=== PATIENT | female | born 1940 | race Caucasian/White ===

== ENCOUNTER 2023-03-21 11:21 | Outpatient (OUT) | payer MEDICARE, SELFPAY ==
--- NOTE | 2023-03-21 11:25 | MM_ITS ---
Patient: BRIDGER PRICE Exam Date: 03/21/2023 : 1940 Gender:F Ordering : DR Samantha Patel M.D. Admission #: [id number] Family : Order #: [id number] CLICK HERE TO VIEW EXAM RADIOLOGY REPORT PROCEDURE: MM TOMOSYNTHESIS SCREENING BI COMPARISON: MG MAMM SCREEN 3D DANIEL CAD, 01/26/2022. MG MAMM SCREEN DANIEL W CAD, 12/31/2019. MG MAMM SCREEN DANIEL W CAD, 12/16/2018. MG MAMM DANIEL SCRN W CAD DIG, 07/02/2013. INDICATIONS: Screening mammogram Z12.31 Calculator Name NCI Breast Cancer Risk Assessment Tool 5 Year Breast Cancer Risk 1.90% Lifetime Breast Cancer Risk 2.60% Personal Breast Cancer No Personal Ovarian Cancer No Treatments Hysterectomy, bilateral oophrectomy Family Cancers Brother with prostate cancer at age 62. LOCATION: [facility] BREAST COMPOSITION: Scattered areas fibroglandular density. FINDINGS: DIAGNOSTIC CATEGORY 2--BENIGN FINDING: RIGHT BREAST: No significant suspicious finding. Scattered benign-appearing calcifications are present. Stable biopsy marker clip and adjacent asymmetry within the upper-outer quadrant. No significant change has occurred. LEFT BREAST: No significant suspicious finding. Scattered benign-appearing calcifications are present. No significant change has occurred. RECOMMENDATIONS: ROUTINE MAMMOGRAM AND CLINICAL EVALUATION IN 12 MONTHS. PLEASE NOTE: A NORMAL MAMMOGRAM DOES NOT EXCLUDE THE POSSIBILITY OF BREAST CANCER. A CLINICALLY SUSPICIOUS PALPABLE LUMP SHOULD BE BIOPSIED. Dictated by: Igor Giles M.D. on 03/21/2023 at 14:39 Approved by: Igor Giles M.D. on 03/21/2023 at 14:53
== END 2023-03-21 11:22 | disposition home or self-care (01) ==
LOC: MAMMO 11:22
PROVIDERS: PCP Family Medicine; Visit Provider Family Medicine
DX: Z12.31 Encounter for screening mammogram for malignant neoplasm of breast (principal); Z80.42 Family history of malignant neoplasm of prostate
CPT/HCPCS: 77063; 77067

== ENCOUNTER 2024-02-03 10:33 | Outpatient (OUT) | payer MEDICARE, SELFPAY ==
[2024-02-03 11:18] LABS: Bilirubin Urine NEGATIVE (NEGATIVE); Blood Urine NEGATIVE (NEGATIVE); Clarity Urine CLEAR (CLEAR); Color Urine LT. YELLOW (YELLOW); Glucose Urine UA NEGATIVE (NEGATIVE); Ketones Urine NEGATIVE (NEGATIVE); Leukocyte Esterase Urine SMALL (NEGATIVE); Nitrite Urine NEGATIVE (NEGATIVE); Protein Urine NEGATIVE (NEG/TRACE); Urobilinogen Urine 0.2 EU/dL (0.2-1.0); pH Urine 6.5 (5.0-9.0)
== END 2024-02-03 10:34 | disposition home or self-care (01) ==
PROVIDERS: PCP Family Medicine; Visit Provider Family Medicine
DX: R30.0 Dysuria (principal)
CPT/HCPCS: 81003; 87086

== ENCOUNTER 2024-04-21 09:22 | Outpatient (OUT) | payer MEDICARE, SELFPAY ==
--- NOTE | 2024-04-21 09:26 | XR_ITS ---
[address] [address] Patient Name: BRIDGER PRICE MRN: [id number] date: 1940 Sex: F Assigned Patient Location: [facility] Current Patient Location: [facility] Accession/Order Number: [id number] Exam Date: 04/21/2024 09:50 Report Date: 04/21/2024 11:44 At the request of: AGUSTÍN VALDEZ Procedure: XR DEXA axial skeleton EXAMINATION: XR DEXA axial skeleton HISTORY: Menopause Present COMPARISON: DEXA bone densitometry 01/26/2022 TECHNIQUE: Dual-energy X-ray absorptiometry (DXA) was performed. FINDINGS: SPINE ANALYSIS: Average bone mineral density is 0.884 g/cm2. T-score (standard deviation relative to young adult mean): -2.6 . +2.3% change since prior study. HIP ANALYSIS: Lowest bone mineral density is within the right femoral neck, 0.660 g/cm2. T-score (standard deviation relative to young adult mean): -2.7 . -2.3% change since prior study. XR/XR DEXA axial skeleton IMPRESSION: World Health Organization Classification: Osteoporosis - High Fracture Risk FRAX: Cannot be calculated Pharmacologic treatment recommendations * No uniform recommendation applies to all patients. Management plans must be individualized. * Consider initiating pharmacologic treatment in postmenopausal women and men >= 50 years of age who have the following: Primary fracture prevention: * T-score <= - 2.5 at the femoral neck, total hip, lumbar spine, 33% radius (some uncertainty with existing data) by DXA. * Low bone mass (osteopenia: T-score between - 1.0 and - 2.5) at the femoral neck or total hip by DXA with a 10-year hip fracture risk >= 3% or a 10-year major osteoporosis-related fracture risk >= 20% (i.e., clinical vertebral, hip, forearm, or proximal humerus) based on the [place]-adapted FRAXregistered model. Secondary fracture prevention: * Fracture of the hip or vertebra regardless of BMD [4, 5]. * Fracture of proximal humerus, pelvis, or distal forearm in persons with low bone mass (osteopenia: T-score between - 1.0 and - 2.5). The decision to treat should be individualized in persons with a fracture of the proximal humerus, pelvis, or distal forearm who do not have osteopenia or low BMD [12, 13]. Dante MS, Olya SL, Vishal KL, Earnest EM, Aldair KG, AJ, Stan ES. The clinician's guide to prevention and treatment of osteoporosis. Osteoporos Int. 2021;33(10):1002-1775. doi: 10.1007/p13810-020-21027-p. Epub 2021Dec 07. Erratum in: Osteoporos Int. 2021Mar 08;: PMID: [id number]; PMCID: [id number]. Electronically authenticated by: SALVADOR MERINO Date: 04/21/2024 11:44
--- OUTSIDE RECORDS SUMMARY | 2024-04-21 09:28 | XMS_ITS | CCD ---
Author Organization [facility] Care Team Providers Care Training Executive Name Role Phone RALF ZARAGOZA Primary Care Physician REQUEST, NONE LISTED Consulting Unavaila ble BALL, DR ARAMBULA Primary Care Unavailable REQUEST, NONE LISTED Admitting Unavaila ble REQUEST, NONE LISTED Attending Unavaila ble REQUEST, NONE LISTED Consulting Unavaila ble BALL, DR ARAMBULA Primary Care Unavailable REQUEST, NONE LISTED Admitting Unavaila ble REQUEST, NONE LISTED Attending Unavaila ble BALL, DR ARAMBULA Admitting Unavailable BALL, DR ARAMBULA Attending Unavailable BALL, DR ARAMBULA Consulting Unavailable BALL, DR ARAMBULA Primary Care Unavailable ZIEBER, DR SALVADOR Zimmerman Consulting Unavailable AGUSTÍN VALDEZ Primary Care Physician Agustín Valdez Unavailable Ralf Zaragoza Unavailable Ralf Zaragoza MD Primary Care Provider Mahin Wise Attending Unavailable Mahin Wise Admitting Unavailable Dedrick Mcgrath Attending Unavailable Dedrick Mcgrath Attending Unavailable Lulu Mcgrathamad AJamie Admitting Unavailable Lulu Mcgrathamacliff AJamie Attending Unavailable Dedrick Mcgrath AJamie Referring Unavailable Mahin Wise Attending Unavailable Mahin Wise Admitting Unavailable YAS LAKE Attending Unavailable YAS LAKE Attending Unavailable YAS LAKE Attending Unavailable YAS LAKE Attending Unavailable YAS LAKE Attending Unavailable EVANS COHEN Attending Unavailable MAHIN WISE Attending Unavailable YAS LAKE Attending Unavailable Allergies Allergy Classification Reported Allergen(s) Allergy Type Date of Onset Reaction(s) Facility Cephalosporins (antibiotic) (2 sources) Cefadroxil; Translations: [cefadroxil] Drug Allergy Unknown [facility] Latex (1 source) Latex Substance Allergy Unknown [facility] Macrolides (antibiotic) (3 sources) Erythromycin; Translations: [erythromycin] Drug Allergy Unknown [facility] Penicillins (antibiotic) (1 source) Penicillins; Translations: [penicillins] Drug Allergy Unknown [facility] Prochlorperazine (1 source) Prochlorperazine; Translations: [prochlorperazine] Drug Allergy 021 Unknown [facility] Propranolol (1 source) Propranolol; Translations: [propranolol] Drug Allergy [facility] Quinolones (antibiotic) (1 source) moxifloxacin; Translations: [moxifloxacin] Drug Allergy [facility] Sulfamethoxazole / Trimethoprim (1 source) Sulfamethoxazole / Trimethoprim; Translations: [sulfamethoxazole-t rimethoprim] Drug Allergy Unknown [facility] (2 sources) Azithromycin; Translations: [Zithromax] Drug Allergy [facility] (2 sources) Cefadroxil; Translations: [Duricef] Drug Allergy [facility] (2 sources) Erythromycin Drug Allergy Hives [facility] (1 source) Iodine (And Iodine Containting Drugs) Drug allergy (disorder) [facility] (8 sources) Latex; Translations: [Latex] Drug allergy (disorder) Unknown, Hives [facility] (2 sources) moxifloxacin; Translations: [Avelox] Drug Allergy [facility] (8 sources) Penicillins; Translations: [penicillins] Drug allergy (disorder) Unknown, Hives [facility] (11 sources) Prochlorperazine; Translations: [Compazine] Drug Allergy Unknown [facility] (2 sources) Propranolol; Translations: [Inderal] Drug Allergy [facility] (2 sources) Sulfamethoxazole / Trimethoprim; Translations: [Bactrim] Drug Allergy [facility] (20 sources) Azithromycin; Translations: [azithromycin] Drug Allergy Unknown [facility] (13 sources) Cefadroxil; Translations: [cefadroxil] Drug Allergy Unknown [facility] (17 sources) Erythromycin; Translations: [erythromycin] Drug Allergy Unknown [facility] (8 sources) Prochlorperazine; Translations: [prochlorperazine] Drug Allergy Unknown [facility] (7 sources) Sulfamethoxazole / Trimethoprim; Translations: [sulfamethoxazole-t rimethoprim] Drug Allergy Unknown [facility] (10 sources) Cephalexin Drug Allergy Unknown, [facility] (10 sources) Iodine Drug Allergy Unknown, [facility] (15 sources) moxifloxacin; Translations: [moxifloxacin] Drug Allergy 023 Unknown, [facility] Other (9 sources) natural latex rubber Propensity to adverse reactions Unknown [facility] Other (9 sources) NITROFURANTOIN, MACROCRYSTALS / Nitrofurantoin, Monohydrate Drug Allergy Unknown [facility] Other (13 sources) Propranolol; Translations: [propranolol] Drug Allergy 024 Unknown, [facility] (9 sources) Sulfonamides (Antibiotic) Propensity to adverse reactions Unknown [facility] Other (9 sources) Substance with penicillin structure and antibacterial mechanism of action (substance) Drug allergy Unknown [facility] Other (9 sources) Product containing tetracycline structure (product) Drug allergy Unknown [facility] Other (6 sources) Latex Drug allergy Unknown [facility] Other (6 sources) Penicillin Drug Allergy Unknown [facility] Other (12 sources) Tetracycline Drug Allergy Unknown [facility] Other (6 sources) Sulf-10 Drug allergy Unknown [facility] Other (6 sources) patient allergy list reviewed by nurse or physicia Propensity to adverse reactions 019 Comment:Done [facility] Other (6 sources) Avelox ABC Pack *FLUOROQUINOLONES* Propensity to adverse reactions Unknown [facility] Other (7 sources) Avelox *FLUOROQUINOLONES* Propensity to adverse reactions 024 Unknown, [facility] (6 sources) Medicinal cephalosporin and acting as antibacterial agent (FN) Drug allergy Unknown [facility] Other (6 sources) Substance with sulfonamide structure and antibacterial mechanism of action (substance) Drug allergy Unknown [facility] Other (6 sources) Compazine *ANTIPSYCHOTICS/ANT IMANIC AGENTS* Propensity to adverse reactions Unknown [facility] Other (2 sources) Fluocinonide Allergy to substance 023 Unknown [facility] (2 sources) Latex Allergy to substance 023 [facility] (2 sources) Penicillins Drug Allergy 013 Unknown [facility] (1 source) Cephalosporins (Antibiotic) Allergy to substance [facility] (1 source) Nitrofurantoin Drug Allergy [facility] (1 source) Sulfonamides (Antibiotic) Allergy to substance [facility] (1 source) Tetracyclines Allergy to substance 024 [facility] Medications Current Medications Medication Drug Class(es) Dates Sig (Normalized) Sig (Original) alendronic acid 10 mg oral tablet (2 sources) Bisphosphonate Alendronate Sodi um 10 MG 1 tablet 30 minutes before the first food, beverage or medicine of the day with plain water Orally Once a day Active calcium carbonate 1250 mg oral tablet (14 sources) Start: 02-28-2024 take 1 tablet by mouth twice daily at mealtime Calcium Carbonate Active 1 TAB PO Twice daily February 28, 2024 12:00am [employer] tablet with meals Orally Twice a day; Note: Source Status: Taking; Provider: Amanda Singh ( ) Start: 10-21-2023 Tums mg, Chewe d, Daily, Refills(s) 0, Indigestion Start Date: 10/21/23 Status: Ordered Start: 10-21-2023 Tums mg, Chewe d, Daily, Refills(s) 0 Start Date: 10/21/23 Status: Ordered take 1 tablet by tacho th every twelve hours Calcium 500 MG 1 tablet with meals Orally Twice a day Active take 1 tablet by tacho th every twelve hours Calcium 500 MG 1 tablet with meals Orally Twice a day Active Calcium Citrate / Vitamin D (6 sources) Start: 09-19-2022 calcium-vitami n D Refill(s) 0, Prophylaxis Start Date: 09/19/22 Status: Ordered Start: 09-19-2022 calcium-vitami n D Refill(s) 0 Start Date: 09/19/22 Status: Ordered cholecalciferol 0.025 mg oral capsule (5 sources) Vitamin D Start: 02-28-2024 take 25 ug by mouth once daily Cholecalciferol (Vitamin D3) Active 25 MCG PO Daily February 28, 2024 12:00am take 1 tablet by tacho th every twenty-four hours Vitamin D3 25 MCG (1000 UT) 1 tablet Orally Once a day Active Benadryl (4 sources) Histamine-1 Receptor Antagonist Start: 10-21-2023 Benadryl Refills(s) 0, Allergy symptoms Start Date: 10/21/23 Status: Ordered Start: 10-21-2023 Benadryl Refil ls(s) 0 Start Date: 10/21/23 Status: Ordered [id number] 0.3 ml EPINEPHrine 1 mg/ml auto-injector (12 sources) alpha-Adrenergic Agonist, beta-Adrenergic Agonist, Catecholamine Start: 02-28-2024 inject 1 mL by subcutaneous injection once Epinephrine (Epipen) 0.3 mg/0.3 mL auto-injector Active 0.3 ML SUBCUT Once February 28, 2024 12:00am [employer]: INJECT 1ML DIRECTED; Note: Source Status: Taking; Refills: 1; Qty: 2 Each; Provider: Nik Arambula ( ) Start: 01-10-2023 EpiPen 2-Brayan 0 .3 MG/0.3ML injection syringe INJECT 1ML DIRECTED 0 01/10/2023 Active loratadine 10 mg oral tablet (18 sources) Start: 02-28-2024 take 1 tablet by mouth once daily Loratadine (Claritin) 10 mg tablet Active 1 TAB PO Daily February 28, 2024 12:00am [employer] tablet Orally Once a day; Note: Source Status: Taking; Provider: Amanda Singh ( ) Start: 09-19-2022 take 1 mg by mouth once daily Claritin 10 mg Tab mg tab(s), Oral, Daily, Refills(s) 0, Allergy symptoms Start Date: 09/19/22 Status: Ordered LORazepam 1 mg oral tablet (18 sources) Benzodiazepine Start: 02-28-2024 take 1 tablet by mouth four times daily Lorazepam Active 1 MG PO Four times daily February 28, 2024 12:00am [employer]: TAKE ONE TABLET BY MOUTH FOUR TIMES A DAY; Note: Source Status: Refill; Refills: 5; Qty: 120 Each; Provider: Amanda Sheehan Start: 09-19-2022 LORazepam 1 mg Tab Refills(s) 0, Anxiety Start Date: 09/19/22 Status: Ordered metoclopramide 5 mg oral tablet (8 sources) Dopamine-2 Receptor Antagonist Start: 09-19-2022 metoclopramide (Regl an) 5 MG tablet Refills(s) 0 0 09/19/2022 Active take 0.5 tablet by mouth once at bedtime Reglan 5 MG 1/2 TABLET Orally Q HS Active Macrodantin (4 sources) Nitrofuran Antibacterial Start: 10-21-2023 Macro dantin Oral, QID, Refills(s) 0, Infection or prophylaxis for antibiotics Start Date: 10/21/23 Status: Ordered Start: 10-21-2023 Macrodantin Or al, QID, Refills(s) 0 Start Date: 10/21/23 Status: Ordered nitrofurantoin, macrocrystals 25 mg / nitrofurantoin, monohydrate 75 mg oral capsule (2 sources) Nitrofuran Antibacterial Start: 09-23-2023 take 1 capsule by mouth every twelve hours Macrobid 100 MG 1 capsule with food Orally every 12 hrs for 5 day(s) Sep, Active predniSONE (6 sources) Start: 09-19-2022 predniSONE Oral, Daily, Refills(s) 0, Infection or prophylaxis for antibiotics Start Date: 09/19/22 Status: Ordered Start: 09-19-2022 predniSONE Ora l, Daily, Refills(s) 0 Start Date: 09/19/22 Status: Ordered Sinus Rinse Kit (4 sources) Start: 10-21-2023 Sinus Rinse Ki t Refill(s) 0, Dry nasal passages Start Date: 10/21/23 Status: Ordered Start: 10-21-2023 Sinus Rinse Ki t Refill(s) 0 Start Date: 10/21/23 Status: Ordered Vitamin D3 25 MCG (1000 UT) (5 sources) take 1 tablet by tacho th once daily Vitamin D3 25 MCG (1000 UT) 1 tablet Orally Once a day Active Problems Active Problems Problem Classification Problem Date Documented Date Episodic/Chronic Abdominal hernia (1 source) Diaphragmatic hernia; Translations: [Diaphragmatic hernia without obstruction or gangrene] Episodic Abdominal pain (5 sources) Epigastric pain; Translations: [Female genital organ symptoms] Onset: 10-17-2023 Episodic Allergic reactions (3 sources) Urticaria; Translations: [Other specified urticaria] Episodic Anxiety disorders (10 sources) Generalized anxiety disorder; Translations: [Generalized anxiety disorder] Chronic Cancer of uterus (1 source) History of malignant neoplasm of female genital organ; Translations: [Personal history of malignant neoplasm of other parts of uterus] Episodic Cataract (2 sources) Bilateral age-related nuclear cataracts; Translations: [Age-related nuclear cataract, bilateral] Onset: 04-05-2023 04-05-2023 Chronic Disorders of lipid metabolism (10 sources) Hyperlipidemia; Translations: [Hyperlipidemia, unspecified] Chronic Esophageal disorders (8 sources) Esophageal reflux finding; Translations: [Esophageal reflux] Onset: 11-27-2023 Chronic Genitourinary symptoms and ill-defined conditions (18 sources) Genuine stress incontinence; Translations: [Stress incontinence (female) (male)] Chronic Genitourinary symptoms and ill-defined conditions (20 sources) Malodorous urine; Translations: [Unspecified abnormal findings in urine] 09-18-2023 Episodic Headache; including migraine (10 sources) Tension-type headache; Translations: [Tension-type headache, unspecified, intractable] Episodic Immunizations and screening for infectious disease (6 sources) Vaccination given; Translations: [Encounter for immunization] Episodic Malaise and fatigue (9 sources) Malaise; Translations: [Other malaise] Episodic Menopausal disorders (10 sources) Decreased estrogen level; Translations: [Other primary ovarian failure] Chronic Miscellaneous mental health disorders (1 source) Psychosomatic factor in physical condition; Translations: [Psychological and behavioral factors associated with disorders or diseases classified elsewhere] Onset: 11-27-2023 Chronic Noninfectious gastroenteritis (1 source) Noninfective gastroenteritis and colitis, unspecified Episodic Nutritional deficiencies (10 sources) Vitamin D deficiency; Translations: [Vitamin D deficiency, unspecified] Chronic Osteoarthritis (10 sources) Bilateral arthritis of knees; Translations: [Bilateral primary osteoarthritis of knee] Chronic Osteoporosis (17 sources) Age-related osteoporosis without current pathological fracture; Translations: [Osteoporosis] Onset: 01-30-2022 09-19-2022 Chronic Other complications of (1 source) Finding related to ; Translations: [Other specified related conditions, unspecified trimester] Episodic Other diseases of bladder and urethra (1 source) Unspecified urethral stricture, male, unspecified site; Translations: [Unspecified urethral stricture, male, unspecified site] Episodic Other diseases of bladder and urethra (1 source) Urethral stricture; Translations: [Urethral stricture, unspecified] Episodic Other disorders of stomach and duodenum (1 source) Disorder of stomach; Translations: [Other diseases of stomach and duodenum] Onset: 11-27-2023 Episodic Other disorders of stomach and duodenum (1 source) Nonulcer dyspepsia; Translations: [Functional dyspepsia] Onset: 11-27-2023 Episodic Other eye disorders (9 sources) Abducens nerve palsy; Translations: [Sixth [abducent] nerve palsy, left eye] Episodic Other injuries and conditions due to external causes (2 sources) History of fall; Translations: [Personal history of fall] Onset: 11-20-2018 Episodic Other lower respiratory disease (1 source) Apnea; Translations: [Apnea, not elsewhere classified] Onset: 11-27-2023 Episodic Other screening for suspected conditions (not mental disorders or infectious disease) (6 sources) Encounter for screening mammogram for malignant neoplasm of breast; Translations: [Mammography abnormal] Onset: 01-26-2022 Episodic Otitis media and related conditions (9 sources) Eustachian tube salpingitis; Translations: [Unspecified Eustachian salpingitis, left ear] Episodic Prolapse of female genital organs (8 sources) Cystocele; Translations: [Midline cystocele] 09-19-2022 Chronic Rehabilitation care; fitting of prostheses; and adjustment of devices (2 sources) Patient encounter status; Translations: [Encounter for fitting and adjustment of other specified devices] 09-18-2023 Chronic Residual codes; unclassified (1 source) Family history of malignant neoplasm of prostate; Translations: [FAMILY HX MALIG NEOPLASM PROSTATE] Onset: 01-30-2022 Episodic Residual codes; unclassified (11 sources) Asymptomatic menopausal state; Translations: [Menopause] Onset: 01-30-2022 03-02-2024 Episodic Residual codes; unclassified (1 source) Requires influenza virus vaccination; Translations: [Need for prophylactic vaccination and inoculation, Influenza] Episodic Residual codes; unclassified (1 source) Postmenopausal state; Translations: [Asymptomatic menopausal state] Episodic Residual codes; unclassified (2 sources) History of hysterectomy for benign disease; Translations: [Acquired absence of both cervix and uterus] 09-18-2023 Episodic Residual codes; unclassified (1 source) Menopause present; Translations: [Asymptomatic menopausal state] 03-02-2024 Episodic Respiratory failure; insufficiency; arrest (adult) (7 sources) Dependence on supplemental oxygen; Translations: [Dependence on supplemental oxygen] Chronic Spondylosis; intervertebral disc disorders; other back problems (10 sources) Cervical spondylosis; Translations: [Spondylosis without myelopathy or radiculopathy, cervical region] Chronic Sprains and strains (10 sources) Neck sprain; Translations: [Strain of muscle, fascia and tendon at neck level, initial encounter] Episodic Systemic lupus erythematosus and connective tissue disorders (15 sources) Temporal arteritis; Translations: [Other giant cell arteritis] Onset: 04-05-2023 Chronic Urinary tract infections (11 sources) Acute urinary tract infection; Translations: [Urinary tract infection, site not specified] Episodic Past or Other Problems Problem Classification Problem Date Documented Da te Episodic/Chronic Conditions associated with dizziness or vertigo (1 source) Benign paroxysmal positional vertigo; Translations: [Benign paroxysmal vertigo, unspecified ear] Onset: 12-30-2014 Episodic Esophageal disorders (3 sources) Esophageal disorders; Translations: [Gastro-esophageal reflux disease with esophagitis, without bleeding] Other bone disease and musculoskeletal deformities (1 source) Bone density finding; Translations: [Other specified disorders of bone density and structure, unspecified site] Onset: 06-11-2013 Episodic Other eye disorders (2 sources) Dry eyes; Translations: [Dry eye syndrome of bilateral lacrimal glands] Onset: 04-05-2023 04-05-2023 Episodic Results Test Name Value Interpretation Reference Range Facility CHEMISTRYOrdered By: SYSTEM SYSTEM on 02-03-2024 CRP [Mass/Vol] 0.2 mg/dL Normal <=1.9mg/dL Remisol Chem CRPon 02-03-2024 CRP [Mass/Vol] 0.2 mg/dL Normal <=1.9 [facility] Comment on above: Performed By: #### [id number] #### [facility] [address] [place] [address] Consent for Treatmenton 01-11 Consent for Treatment [id number] Normal [facility] HEMATOLOGYOrdered By: Randy Galindo on 02-03-2024 ESR (Bld) [Velocity] 35 mm/h High 0 - 34 mm/hr [facility] HEMATOLOGYOrdered By: SYSTEM SYSTEM on 02-03-2024 Platelets (Bld) [#/Vol] 212.0 E9/L Normal 150. 0 - 500.0 E9/L [facility] Laboratory - Chemistry and C hemistry - challengeon 02-03-2024 Bilirubin Ql (U) Negative NEGATIVE [facility] Glucose (U) [Mass/Vol] Negative NEGATIVE [facility] Ketones Ql (U) Negative NEGATIVE [facility] pH (U) 6.5 [pH] 5.0-9.0 [facility] Specific gravity (U) [Rel density] 1.010 1.005-1.02 5 [facility] Urobilinogen Qn (U) 0.2 {Christie'U}/dL 0.2-1.0 [facility] Laboratory - Specimen inform ationon 02-03-2024 Appearance (U) CLEAR CLEAR [facility] Color (U) LT. YELLOW YELLOW [facility] Laboratory - Urinalysison Leukocyte esterase Test strip Ql (U) SMALL Abnormal NEGATIVE [facility] Nitrite Ql (U) Negative NEGATIVE [facility] Protein Ql (U) Negative NEG/TRACE [facility] No Panel Informationon 02-02 Urine Occult Blood Negative NEGATIVE [facility] Physician Orderon 02-03-2024 Physician Order [id number] Normal [facility] Platelet Counton 02-03-2024 Platelets (Bld) [#/Vol] 212.0 E9/L Normal 150. 0-500. 0 [facility] Comment on above: Performed By: #### [id number] #### [facility] [address] [place] [address] Sed Rate Automatedon 024 ESR (Bld) [Velocity] 35 mm/h High 0-34 [facility] Comment on above: Performed By: #### 1 [id number] #### [facility] [address] [place] [address] Ambulatory Visit Summaryon 0 11-27-2023 Ambulatory Visit Summary CORI GA :1940 Visit Date:11/27/2023 Ambulatory Visit Instructions Your Care Team Attending Physician - Alcides BAHDedrick Primary Care Physician - AGUSTÍN VALDEZ MD This Is Your Medications List Contact prescribing physician if questions or concerns calcium carbonate (Tums) calcium-vitamin D diphenhydrAMINE (Benadryl) loratadine (Claritin 10 mg Tab) lorazepam (LORazepam 1 mg Tab) nitrofurantoin (Macrodantin) predniSONE sodium chloride nasal (Sinus Rinse Kit) Procedures Performed EGD - esophagogastroduodenoscop y (10/30/2023), Nose (08/12/2010), EGD (esophagogastroduodenosco pic) electrohydraulic lithotripsy of bezoar in stomach (11/10/2009), Cholecystectomy, Cystoscopy, Hysterectomy. Discharge Vitals Heart Rate (Peripheral) 102 Respiratory Rate 16 Blood Pressure 153/72 Height 157 cm Height 62 in Weight 54 kg Weight 118.8 lb BMI 21.91 Medications What How Much When Instructions Unchanged calcium carbonate (Tums) Every day Contact prescribing physician if questions or concerns Unchanged calcium-vitamin D Contact prescribing physician if questions or concerns Unchanged diphenhydrAMINE (Benadryl) Contact prescribing physician if questions or concerns Unchanged loratadine (Claritin 10 mg Tab) Every day Contact prescribing physician if questions or concerns Unchanged lorazepam (LORazepam 1 mg Tab) Contact prescribing physician if questions or concerns Unchanged nitrofurantoin (Macrodantin) 4 times a day Contact prescribing physician if questions or concerns Unchanged predniSONE Every day Contact prescribing physician if questions or concerns Unchanged sodium chloride nasal (Sinus Rinse Kit) Contact prescribing physician if questions or concerns Allergies Avelox Bactrim (Unknown) Compazine (Unknown) Duricef (Unknown) Inderal Latex (Unknown) Zithromax (Unknown) azithromycin (Unknown) cefadroxil (Unknown) erythromycin (Unknown) penicillins (Unknown) Problems Ongoing - Any problem that you are currently receiving treatment for. Cystocele with prolapse Osteoporosis Patient Survey You may receive a survey via text or e-mail asking about your office visit. Please share your experience with us by completing your survey. We appreciate your feedback and thank you for choosing us for your care. Normal [facility] Gastroenterology Office/Clin ic Noteon 11-27-2023 Gastroenterology Office/Clinic Note Chief Complaint follow up to EGD HPI Staff Patient is a 82 year old female here today to review EGD results. EGD Findings: 10/30/2023 Z-line was regular Patulous GE junction Patchy erythema throughout the whole stomach consistent with mild gastropathy status post biopsies Sessile and flat polyps in the fundus likely secondary to fundic gland polyp status post biopsies Normal duodenum Pathology Final Diagnosis (Verified) STOMACH, BIOPSY: ? MILD CHRONIC INACTIVE GASTRITIS, COMPATIBLE WITH REACTIVE GASTROPATHY. ? NO INTESTINAL METAPLASIA IDENTIFIED. ? NO H. PYLORI MICROORGANISMS IDENTIFIED IMMUNOSTAIN. Dr Mcgrath Assessment/Plan: 10/21/2023 1. Epigastric pain (R10.13: Epigastric pain) Ordered: EGD Endoscopy (Hospital Procedure) Acid reflux (K21.9: Gastro-esophageal reflux disease without esophagitis) Ordered: EGD Endoscopy (Hospital Procedure) Left upper quadrant pain (R10.12: Left upper quadrant pain) Ordered: EGD Endoscopy (Hospital Procedure) Stress-related physiological response affecting medical condition (F54: Psychological and behavioral factors associated with disorders or diseases classified elsewhere) Ordered: EGD Endoscopy (Hospital Procedure) Advised to use FD guard twice a day Schedule upper endoscopy Advised to get stress under good control and needs a counselor might Benefit from PPI trial in the future History of Present Illness I have reviewed HPI staff note, most recent labs and imaging, more than 30 minutes spent reviewing the chart, during encounter, placing orders and counseling the patient. PT is doing well after starting FD akshat got 3 GERD episodes, responded to GERD otherwise, she is doing well under some stress since son is in the hospital Review of Systems PHQ Score Initial Depression Screen Score: 0 SCORE All systems reviewed, negative except as mentioned above Physical Exam Vitals & Measurements HR: 102(Peripheral) RR: 16 BP: 153/72 HT: 62 in HT: 157 cm WT: 54 kg WT: 118.8 lb BMI: 21.91 General: alert, no acute distress HEENT: atraumatic normocephalic Cardiovascular: regular rate and rhythm, normal peripheral perfusion Respiratory: Lungs CTA, respirations non labored Extremities: no deformity, no trauma Abdomen: Benign, soft, nontender nondistended Assessment/Plan 1. Functional dyspepsia (K30: Functional dyspepsia) 2. Reactive gastropathy (K31.89: Other diseases of stomach and duodenum) 3. GERD (gastroesophageal reflux disease) (K21.9: Gastro-esophageal reflux disease without esophagitis) 4. Stress-related physiological response affecting medical condition (F54: Psychological and behavioral factors associated with disorders or diseases classified elsewhere) Apnea, not elsewhere classified (R06.81: Apnea, not elsewhere classified) Continue FD guard Continue GERD measures and Tums as needed Continue to get stress under good control Follow-up No qualifying data available Problem List/Past Medical History Ongoing Cystocele with prolapse Osteoporosis Historical No qualifying data Procedure/Surgical History EGD - esophagogastroduodenoscop y (10/30/2023), Nose (08/12/2010), EGD (esophagogastroduodenosco pic) electrohydraulic lithotripsy of bezoar in stomach (11/10/2009), Cholecystectomy, Cystoscopy, Hysterectomy. Medications Benadryl calcium-vitamin D Claritin 10 mg Tab, Oral, Daily LORazepam 1 mg Tab Macrodantin, Oral, QID, Not taking predniSONE, Oral, Daily, Not taking Sinus Rinse Kit Tums, Chewed, Daily Allergies Avelox Bactrim (Unknown) Compazine (Unknown) Duricef (Unknown) Inderal Latex (Unknown) Zithromax (Unknown) azithromycin (Unknown) cefadroxil (Unknown) erythromycin (Unknown) penicillins (Unknown) Social History Tobacco Never (less than 100 in lifetime) Tobacco Use:., 11/27/2023 Never (less than 100 in lifetime) Tobacco Use:., 10/21/2023 Never (less than 100 in lifetime) Tobacco Use:. Never Smokeless Tobacco Use:., 09/19/2022 Family History Family history is negative Immunizations Vaccine Date Status influenza virus vaccine, inactivated 06/01/2022 Recorded influenza virus vaccine, inactivated 05/02/2021 Recorded influenza virus vaccine, inactivated 06/02/2018 Recorded influenza virus vaccine, inactivated 05/30/2017 Recorded influenza virus vaccine, inactivated 06/05/2016 Recorded Normal [facility] Comment on above: Result Comment: Elec tronically Signed By: Alcides BAH, Dedrick Kirk\.br\Date and Time Signed: 11/27/23 13:10 EDT Postoperative Documentson Postoperative Documents [id number] Normal [facility] IntraOperative Documentson 0 11-04-2023 IntraOperative Documents [id number] Normal [facility] Progress Note-Physicianon Progress Note-Physician Patient: CORI GA Age: 82 years Sex: Female : 1940 Associated Diagnoses: None Author: Constantin Worley Jr, DO Preoperative Information Anesthesia Preop Info: Time patient last ate or drank 10/30/2023 00:00:00. Anesthesia history: Patient history: None. Family history+: None. Informed consent: Signed by patient. Re-evaluation prior to induction: Initial evaluation reviewed: No significant change. Review of Systems Eye: Negative except as documented in history of present illness. Ear/Nose/Mouth/Throat: Negative except as documented in history of present illness. Respiratory: Negative except as documented in history of present illness. Cardiovascular: Negative except as documented in history of present illness. Musculoskeletal: Negative except as documented in history of present illness. Neurologic: Negative except as documented in history of present illness. Health Status Allergies: Allergic Reactions (Selected) Severity Not Documented Avelox- No reactions were documented. Azithromycin- Unknown. Bactrim- Unknown. Cefadroxil- Unknown. Compazine- Unknown. Duricef- Unknown. Erythromycin- Unknown. Inderal- No reactions were documented. Latex- Unknown. Penicillins- Unknown. Zithromax- Unknown. Problem list: All Problems Osteoporosis / SNOMED CT 207017597 / Confirmed Cystocele with prolapse / SNOMED CT 064938605 / Confirmed Histories Procedure history: Nose (20447476) on 08/12/2010 at 69 Years. EGD (esophagogastroduodenosco pic) electrohydraulic lithotripsy of bezoar in stomach (9977430010) on 11/10/2009 at 68 Years. Hysterectomy (667782583). Cholecystectomy (28412138). Cystoscopy (45383140). Social History Social & Psychosocial Habits Tobacco 10/21/2023 Tobacco Use: Never (less than 100 in l Smokeless tobacco use: Never 10/21/2023 Tobacco Use: Never (less than 100 in l . Physical Examination Airway: Mallampati classification: II (soft palate, fauces, uvula visible). Respiratory: adequate air exchange. Cardiovascular: Regular rhythm. Plan [place] [employer]esthesiologists (ASA) physical status classification: Class II. Anesthetic Preoperative Plan: Anesthesia General. Normal [facility] Comment on above: Result Comment: Elec tronically Signed By: Constantin Worley Jr, DO\.br\Date and Time Signed: 11/01/23 08:56 EDT Progress Note-Physician Patient: CORI GA Age: 82 years Sex: Female : 1940 Associated Diagnoses: None Author: Constantin Worley Jr, DO Postoperative Information Postoperative disposition: Postoperative disposition: To PACU. Optimetrix number: Optimetrix number [id number]. Anesthetic utilized: General. Health Status Allergies: Allergic Reactions (Selected) Severity Not Documented Avelox- No reactions were documented. Azithromycin- Unknown. Bactrim- Unknown. Cefadroxil- Unknown. Compazine- Unknown. Duricef- Unknown. Erythromycin- Unknown. Inderal- No reactions were documented. Latex- Unknown. Penicillins- Unknown. Zithromax- Unknown. Physical Examination Vital Signs 10/30/2023 11:15 EDT Heart Rate Monitored 82 bpm Respiratory Rate Monitored 12 br/min Systolic Blood Pressure 139 mmHg Diastolic Blood Pressure 75 mmHg Blood Pressure Location Left arm SpO2 96 % 10/30/2023 11:00 EDT Heart Rate Monitored 89 bpm Respiratory Rate Monitored 13 br/min Systolic Blood Pressure 125 mmHg Diastolic Blood Pressure 69 mmHg Blood Pressure Location Left arm SpO2 96 % 10/30/2023 10:55 EDT Heart Rate Monitored 85 bpm Respiratory Rate Monitored 17 br/min Systolic Blood Pressure 110 mmHg Diastolic Blood Pressure 61 mmHg Blood Pressure Location Left arm SpO2 97 % 10/30/2023 10:50 EDT Heart Rate Monitored 80 bpm Respiratory Rate Monitored 14 br/min Systolic Blood Pressure 97 mmHg Diastolic Blood Pressure 58 mmHg LOW Blood Pressure Location Left arm SpO2 94 % 10/30/2023 10:45 EDT Temperature Temporal Artery 36.1 DegC LOW Heart Rate Monitored 78 bpm Respiratory Rate Monitored 15 br/min Systolic Blood Pressure 110 mmHg Diastolic Blood Pressure 55 mmHg LOW Blood Pressure Location Left arm SpO2 96 % Pain Assessment: Controlled. General: Awake, Alert, Appropriate. Respiratory: Adequate air exchange. Cardiovascular: Stable, Normal peripheral perfusion. Neurological: Normal sensory function, Normal motor function. Assessment Anesthetic outcome No anesthetic complications noted. Adequate pain relief. able to void without difficulty, able to ambulate with assist, tolerating PO intake, no N/V. Review / Management Condition: Stable. Plan Transfer/Discharge: Transfer/Discharge Discharge when meets criteria ( To home ). [facility] Comment on above: Result Comment: Elec tronically Signed By: Constantin Worley Jr, DO\.br\Date and Time Signed: 11/01/23 08:53 EDT Consenton 10-31-2023 Consent [id number] [facility] Discharge Instructionson Discharge Instructions [id number] [facility] Main OR Intraoperative Recor don 10-31-2023 Main OR Intraoperative Record IntraOp Document Type FT Summary Primary Physician: Dedrick Mcgrath MD Finalized Date/Time: 10/31/23 10:27:51 Pt. Name: DEECORI/Sex: 1940 Female Med Rec #: [id number] Physician: Dedrick Mcgrath MD Financial #: [id number] Pt. Type: O Room/Bed: / Admit/Disch: 10/30/23 08:55:42 - 10/30/23 23:59:59 Institution: Case Times FT Entry 1 Patient Times In Room 10/30/23 10:30:00 Out Room 10/30/23 10:45:00 Procedure Times Start 10/30/23 10:38:00 Stop 10/30/23 10:41:00 Anesthesia Times Start 10/30/23 10:30:00 Stop 10/30/23 10:45:00 Last Modified By: Jenny Nagel RN 10/30/23 10:45:21 General Comments: 10/31/23 chart opened for charge review per Marcus Gutierrez RN. [place] Case Attendance FT Entry 1 Entry 2 Entry 3 Case Attendee Rob GRIGGS, Edilson Aguillon, Dipika Lim INSPECTION MACHINE TENDER, Barbara Ontiveros Role Performed Anesthesiologist Scrub - Primary Scrub - Primary Herb Counselor Time In 10/30/23 10:30:00 10/30/23 10:30:00 10/30/23 10:30:00 Time Out 10/30/23 10:45:00 10/30/23 10:45:00 10/30/23 10:45:00 Procedure EGD(.) EGD(.) EGD(.) Comments Dr. Worley is supervising Last Modified By: Robe MORA, Jenny Nagel RN, Jenny Connell RN 10/30/23 10:45:22 10/30/23 10:45:22 10/30/23 10:45:22 Entry 4 Entry 5 Case Attendee Alcides BAH, Dedrick Nagel RN, Jenny Hodges Role Performed Surgeon - Primary Director Of Graduate Admissions - Primary Time In 10/30/23 10:30:00 10/30/23 10:30:00 Time Out 10/30/23 10:45:00 10/30/23 10:45:00 Procedure EGD(.) EGD(.) Comments Last Modified By: Robe MORA, Jenny Nagel RN, Jenny Hodges 10/30/23 10:45:22 10/30/23 10:45:22 Perioperative Protocols FT Pre-Care Text: Implements protective measures prior to operative or invasive procedure, confirms identity before the operative or invasive procedure, verifies operative procedure, surgical site, and laterality Entry 1 Procedure(s) EGD(.) Patient Identity Birthday, ID Band Verified (select at Check, Patient least 2): Participation Consents / H and P Anesthesia Consent, Operative Site N/A Verified HandP, Surgery/Procedure Marking Verified Consent Surgical Site No Laterality Verified n/a Verified Procedure Verified Yes Correct Patient Yes Position Verified Availability Equipment, Medication Prep Dry n/a Verified (If Applicable) PreOp Antibiotic No Time Out Edilson Rocha, Given Participants Dipika Aguillon Schafer INSPECTION MACHINE TENDER, Alcides Serrano MD, Dedrick Kirk, Robe MORA, Jenny Hodges Time Out Complete 10/30/23 10:31:00 Outcomes Met? Yes Last Modified By: Jenny Nagel RN 10/30/23 10:31:48 Post-Care Text: The patient is free from signs and symptoms of injury caused by extraneous objects Allergy Information FT Pre-Care Text: Verifies allergies Entry 1 Allergies Reviewed? Yes Allergies Reviewed Self/Patient With Outcomes Met? Yes Last Modified By: Jenny Nagel RN 10/30/23 07:44:05 Post-Care Text: The patient received appropriate medication(s) safely administered during the perioperative period Surgical Procedures FT Entry 1 Procedure Description Procedure EGD Modifiers . Surgeon Description EGD with gastric biopsy Primary Procedure Yes Primary Surgeon Alcides BAH, Dedrick Kirk Start 10/30/23 10:38:00 Stop 10/30/23 10:41:00 Anesthesia Type General Surgical Service Gastroenterology Wound Class 2 - Clean-Contaminated Last Modified By: Jenny Nagel RN 10/30/23 10:42:04 General Case Data FT Pre-Care Text: Classifies surgical wound, implements aseptic technique, initiates traffic control Entry 1 Case Information OR ENDO 1 FT Case Level Level 2 Wound Class 2 - Clean-Contaminated Specialty Gastroenterology ASA Class 2 Preop Diagnosis Epigastric pain, stress Postop Same As Preop No related phsiological response effecting medical condition, LUQ pain, acid reflux Postop Diagnosis Gastropathy, patchulous Outcomes Met? Yes GE junction Last Modified By: Jenny Nagel RN 10/30/23 10:45:17 Post-Care Text: The patient is free from signs and symptoms of infection Skin Assessment (Pre Procedure) FT Pre-Care Text: Implements protective measures to prevent skin/ tissue injury due to thermal or mechanical sources Evaluates for signs and symptoms of physical injury to skin and tissue Entry 1 Skin Integrity Intact, [place], Warm, and Skin Abnormality No Dry Outcomes Met? Yes Last Modified By: Jenny Nagel RN 10/30/23 07:45:28 Post-Care Text: The patient is free from signs and symptoms of injury caused by extraneous objects Patient Positioning FT Pre-Care Text: Identifies physical alterations that require additional precautions for procedure-specific positioning, verifies presence of prosthetics or corrective devices, positions the patient, evaluates the patient for signs and symptoms of injury as a result of positioning Entry 1 Procedure EGD(.) Body Position Lateral, r (more content not included)... Normal [facility] Consent for Treatmenton 10-11 Consent for Treatment [id number] [facility] Discharge Instructionson Discharge Instructions CORI GA :1940 Visit Date:10/30/2023 Inpatient Discharge Instructions Your Care Team Admitting Physician - Dedrick Mcgrath MD Referring Physician - Dedrick Mcgrath MD Reason for Your Visit EPIGASTRIC PAIN, STRESS RELATED PHYSIOLOGICAL RESPONSE EFFECTING MEDICAL CONDITION, LUQ PAIN, ACID REFLUX Your Diagnosis Gastropathy Tests Performed Pathology Tissue Exam -- Results Pending -- Please visit your patient portal for your results or contact your primary care physician. This Is Your Medications List calcium carbonate (Tums) calcium-vitamin D diphenhydrAMINE (Benadryl) loratadine (Claritin 10 mg Tab) lorazepam (LORazepam 1 mg Tab) nitrofurantoin (Macrodantin) predniSONE sodium chloride nasal (Sinus Rinse Kit) Procedure History EGD - esophagogastroduodenoscop y (10/30/2023), Nose (08/12/2010), EGD (esophagogastroduodenosco pic) electrohydraulic lithotripsy of bezoar in stomach (11/10/2009), Cholecystectomy, Cystoscopy, Hysterectomy. Discharge Vitals Temperature (Temporal Artery) 36.1 ?C Heart Rate (Monitored) 89 Respiratory Rate 13 Blood Pressure 125/69 Height 157 cm Weight 55.4 kg BMI 22.48 What to do next Instructions From Your Doctor Event Name Event Result Pharmacy Information [facility] New Follow Up Appointments after Discharge Follow Up with Alcides BAH, Dedrick Kirk, [facility] [place], [facility] When: Comments: Office will call to schedule follow up appointment and/or review any pending biopsy results Call for any problems. Where: [address] [place], [place] [address], [address] [place] [address] [phone] Medications What How Much When Instructions Next Dose Unchanged calcium carbonate (Tums) Every day Unchanged calcium-vitamin D Unchanged diphenhydrAMINE (Benadryl) Unchanged loratadine (Claritin 10 mg Tab) Every day Unchanged lorazepam (LORazepam 1 mg Tab) Unchanged nitrofurantoin (Macrodantin) 4 times a day Unchanged predniSONE Every day Unchanged sodium chloride nasal (Sinus Rinse Kit) Test Results No qualifying data available. Allergies Avelox Bactrim (Unknown) Compazine (Unknown) Duricef (Unknown) Inderal Latex (Unknown) Zithromax (Unknown) azithromycin (Unknown) cefadroxil (Unknown) erythromycin (Unknown) penicillins (Unknown) Problems Ongoing - Any problem that you are currently receiving treatment for. Cystocele with prolapse Osteoporosis Education Materials Endoscopy Care After Procedure Please read the instructions outlined below and refer to this sheet in the next few weeks. These discharge instructions provide you with general information on caring for yourself after you leave the hospital. Your doctor may also give you specific instructions. While your treatment has been planned according to the most current medical practices available, unavoidable complications occasionally occur. If you have any problems or questions after discharge, please call your doctor. ACTIVITY ? You may resume your regular activity but move at a slower pace for the next 24 hours. ? Take frequent rest periods for the next 24 hours. ? Walking will help expel (get rid of) the air and reduce the bloated feeling in your abdomen. ? No driving for 24 hours (because of the anesthesia (medicine) used during the test). ? You may shower. ? Do not sign any important legal documents or operate any machinery for 24 hours (because of the anesthesia used during the test). NUTRITION ? Drink plenty of fluids. ? You may resume your normal diet. ? Begin with a light meal and progress to your normal diet. ? Avoid alcoholic beverages for 24 hours or as instructed by your caregiver. MEDICATIONS ? You may resume your normal medications unless your caregiver tells you otherwise. WHAT YOU CAN EXPECT TODAY ? You may experience abdominal discomfort such as a feeling of fullness or ?gas? pains. FOLLOW-UP ? Your doctor will discuss the results of your test with you. SEEK IMMEDIATE MEDICAL ATTENTION IF ANY OF THE FOLLOWING OCCUR: ? Excessive nausea (feeling sick to your stomach) and/or vomiting. ? Severe abdominal pain and distention (swelling). ? Trouble swallowing. ? Temperature over 100 F (37.8? C). ? Rectal bleeding or vomiting of blood. Document Released: 03/12/2005 Document Re-Released: 01/20/2007 ExitCare? Patient Information ?2009 [employer]. Common Emergency Awareness Tips IS IT A STROKE? Act FAST and Check for these signs: FACE Does the face look uneven? ARM Does one arm drift down? SPEECH Does their speech sound strange? TIME Call at any sign of stroke Heart Attack Signs Chest discomfort: Most heart attacks involve discomfort in the center of the chest and lasts more than a few minutes, or goes away and comes back. It can feel like uncomfortable pressure, squeezing, fullness o (more content not included)... Normal [facility] Comment on above: Result Comment: Elec tronically Signed By: Manas MORA, Tete\.br\Date and Time Signed: 10/30/23 11:08 EDT EGDon 10-30-2023 Esophagogastroduodenosco py Patient: CORI GA Age: 82 years Sex: Female : 1940 Associated Diagnoses: None Author: Dedrick Mcgrath MD Pre-Procedure Procedure Date 10/04/2023 09:18:00 . Procedure Type: Esophagogastroduodenoscop y with biopsy. Procedure provider Performed by Dedrick Mcgrath MD. Current history and physical Documented on chart. Informed Consent After discussing the rationale, risks and benefits, and alternatives to this procedure, the patient provided signed consent for the procedure. Pre-procedure diagnosis: Left upper quadrant pain. Medications (Selected) Inpatient Medications Ordered Lactated Ringers IV Mariann 1000 mL 1,000 mL: 1,000 mL, IV, 100 mL/hr, Routine, Start date 10/30/23 7:33:00 EDT, 10 hour(s), Total volume (mL): 1,000, 55.4 kg, 1.55, m2 Sodium Chloride 0.9% IV Mariann 1000 mL 1,000 mL: 1,000 mL, IV, 20 mL/hr, Routine, Start date 10/30/23 6:41:00 EDT, 50 hour(s), Total volume (mL): 1,000, 55.4 kg, 1.55, m2 Documented Medications Documented Benadryl: Refills(s) 0, Allergy symptoms Claritin 10 mg Tab: mg tab(s), Oral, Daily, Refills(s) 0, Allergy symptoms LORazepam 1 mg Tab: Refills(s) 0, Anxiety Macrodantin: Oral, QID, Refills(s) 0, Infection or prophylaxis for antibiotics Sinus Rinse Kit: Refill(s) 0, Dry nasal passages Tums: mg, Chewed, Daily, Refills(s) 0, Indigestion calcium-vitamin D: Refill(s) 0, Prophylaxis predniSONE: Oral, Daily, Refills(s) 0, Infection or prophylaxis for antibiotics ASA Classification: Class II. . Monitoring: See anesthesia record. . Procedure The procedure was performed in the hospital. See anesthesia record for sedation given during procedure. The patient was positioned starting in the left lateral decubitus position. Endoscope type used was, introduced orally, advanced to the 2nd portion of the duodenum. No difficulty was encountered during the procedure. Views were excellent. The patient tolerated the procedure well. Findings Z-line was regular Patulous GE junction Patchy erythema throughout the whole stomach consistent with mild gastropathy status post biopsies Sessile and flat polyps in the fundus likely secondary to fundic gland polyp status post biopsies Normal duodenum Images Procedure images: [id number].jpg [id number].jpg [id number].jpg [id number].jpg [id number].jpg [id number].jpg [id number].jpg [id number].jpg [id number].jpg . Post-Procedure Complications: none. Estimated blood loss: none. Specimens: sent to pathology. Devices/ implants: none left in place. Impression and Plan EGD: Diagnosis: Gastropathy ([id number] K31.9, Working, Medical). Course: Progressing as expected. Education and Follow-up: Counseled: Family. Notes: Continue FD guard Follow-up after 6 to 8 weeks. [facility] Comment on above: Other Comment: Shyanne barnes Attachment - attachment storage system not supported [id number] Can be viewed in source system Missing Attachment - attachment storage system not supported [id number] Can be viewed in source system Missing Attachment - attachment storage system not supported [id number] Can be viewed in source system Missing Attachment - attachment storage system not supported [id number] Can be viewed in source system Missing Attachment - attachment storage system not supported [id number] Can be viewed in source system Missing Attachment - attachment storage system not supported [id number] Can be viewed in source system Missing Attachment - attachment storage system not supported [id number] Can be viewed in source system Missing Attachment - attachment storage system not supported [id number] Can be viewed in source system Missing Attachment - attachment storage system not supported [id number] Can be viewed in source system Main OR PACU I Recordon 10-11 Main OR PACU I Record PACU Phase I Docum ent Type FT Summary Primary Physician: Dedrick Mcgrath MD Finalized Date/Time: 10/30/23 12:38:04 Pt. Name: CORI GA/Sex: 1940 Female Med Rec #: [id number] Physician: Dedrick Mcgrath MD Financial #: [id number] Pt. Type: O Room/Bed: / Admit/Disch: 10/30/23 08:55:42 - Institution: Case Times PACU I FT Pre-Care Text: Identifies barriers to communication and implements measures to provide psychological support Develops individualized plan of care, and ensures continuity of care Maintains patient's dignity and privacy, and maintains patient confidentiality Identifies and reports philosophical, cultural, and spiritual beliefs and values Identifies individual values and wishes concerning care Implements aseptic technique, and administers prescribed antibiotic therapy and immunizing agents as ordered Evaluates postoperative tissue perfusion Implements thermoregulation measures, and monitors body temperature Evaluates postoperative respiratory status Evaluates postoperative cardiac status Evaluates postoperative neurological status Assesses pain control, collaborated in initiating patient-controlled analgesia and implements alternative methods of pain control Verifies allergies, administers prescribed medications and solutions, evaluates response to medications Entry 1 In PACU I 10/30/23 10:45:00 Discharge from PACU 10/30/23 11:15:00 I Outcomes Met? Yes Last Modified By: Tete Malagon RN 10/30/23 12:37:43 Post-Care Text: The patient demonstrates knowledge of the expected response to the operative or invasive procedure The patient's care is consistent with the individualized perioperative plan of care The patient's right to privacy is maintained The patient's value system, lifestyle, ethnicity, and culture are considered, respected, and incorporated into the perioperative plan of care The patient participates in decisions affecting his or her perioperative plan of care The patient is free from signs and symptoms of infection The patient has wound/tissue perfusion consistent with or improved from baseline levels established preoperatively The patient is at or returning to normothermia at the conclusion of the immediate postoperative period The patient's respiratory function is consistent with or improved from baseline levels established preoperatively The patient's cardiovascular status is consistent with or improved from baseline levels established preoperatively The patient's cardiovascular status is consistent with or improved from baseline levels established preoperatively The patient demonstrates and/or reports adequate pain control throughout the perioperative period The patient received appropriate medication(s), safely administered during the perioperative period Acuity Level PACU I FT Entry 1 Start Time 10/30/23 10:45:00 Stop Time 10/30/23 11:15:00 Acuity Level Acuity Level I Last Modified By: Tete Malagon RN 10/30/23 12:38:00 Finalized By: Tete Malagon RN Document Signatures Signed By: Tete Malagon RN 10/30/23 12:38 Normal [facility] Main OR Preoperative Recordo n 10-30-2023 Main OR Preoperative Record Holding Area Document Type FT Summary Primary Physician: Dedrick Mcgrath MD Finalized Date/Time: 10/30/23 09:11:28 Pt. Name: CORI GA/Sex: 1940 Female Med Rec #: [id number] Physician: Dedrick Mcgrath MD Financial #: [id number] Pt. Type: O Room/Bed: / Admit/Disch: 10/30/23 08:55:42 - Institution: Case Times Holding FT Pre-Care Text: Verifies consent for planned procedure, identifies individual values and wishes concerning care, includes family members in perioperative teaching Secures patient's records' belongings, and valuables, maintains patient's dignity and privacy, and maintains patient confidentiality Entry 1 In Holding 10/30/23 09:09:00 Outcomes Met? Yes Last Modified By: Jenny Nagel RN 10/30/23 09:11:22 Post-Care Text: The patient participates in decisions affecting his or her perioperative plan of care The patient's right to privacy is maintained Surgery Checklist FT Entry 1 Patient Birthday, ID Band Procedure History and Physical, Identification: Check, Patient Verification: Surgical Consent, With Participation Patient NPO after Midnight: Yes Personal Items: Glasses, Jewelry Personal Items x2 rings, clothes Limitations: no Comment: Complaints of Pain: No Pain Comment: no Operative Site n/a Marked By: n/a Marking: Availability Equipment Verified: Does Patient Smoke No Patient states Yes Comment - Adult postop adult Supervision supervision available Case Cancelled in No Holding Area see comments below for reason Last Modified By: Jenny Nagel RN 10/30/23 09:11:04 Finalized By: Jenny Nagel RN Document Signatures Signed By: Jenny Nagel RN 10/30/23 09:11 Normal [facility] Monitor Recordon 10-30-2023 Monitor Record [id number]#[id number] Normal [facility] Monitor Record [id number]#1.00TIFF [facility] Consent for Procedure/Surger yon 10-22-2023 Consent for Procedure/Surgery [id number]#1.00TIFF [facility] Ambulatory Visit Summaryon 0 10-21-2023 Ambulatory Visit Summary CORI GA :1940 Visit Date:10/21/2023 Ambulatory Visit Instructions Your Diagnosis Epigastric pain Acid reflux Left upper quadrant pain Stress-related physiological response affecting medical condition Your Care Team Attending Physician - Alcides BAH, Dedrick Kirk Primary Care Physician - AGUSTÍN VALDEZ MD This Is Your Medications List nitrofurantoin (Macrodantin) Contact prescribing physician if questions or concerns calcium carbonate (Tums) calcium-vitamin D diphenhydrAMINE (Benadryl) loratadine (Claritin 10 mg Tab) lorazepam (LORazepam 1 mg Tab) predniSONE sodium chloride nasal (Sinus Rinse Kit) Procedures Performed Nose (08/12/2010), EGD (esophagogastroduodenosco pic) electrohydraulic lithotripsy of bezoar in stomach (11/10/2009), Cholecystectomy, Cystoscopy, Hysterectomy. Discharge Vitals Heart Rate (Peripheral) 101 Respiratory Rate 16 Blood Pressure 169/78 Height 62 in Height 157 cm Weight 121.88 lb Weight 55.4 kg BMI 22.48 Medications What How Much When Instructions Unchanged nitrofurantoin (Macrodantin) 4 times a day Unchanged calcium carbonate (Tums) Every day Contact prescribing physician if questions or concerns Unchanged calcium-vitamin D Contact prescribing physician if questions or concerns Unchanged diphenhydrAMINE (Benadryl) Contact prescribing physician if questions or concerns Unchanged loratadine (Claritin 10 mg Tab) Every day Contact prescribing physician if questions or concerns Unchanged lorazepam (LORazepam 1 mg Tab) Contact prescribing physician if questions or concerns Unchanged predniSONE Every day Contact prescribing physician if questions or concerns Unchanged sodium chloride nasal (Sinus Rinse Kit) Contact prescribing physician if questions or concerns Allergies Avelox Bactrim (Unknown) Compazine (Unknown) Duricef (Unknown) Inderal Latex (Unknown) Zithromax (Unknown) azithromycin (Unknown) cefadroxil (Unknown) erythromycin (Unknown) penicillins (Unknown) Problems Ongoing - Any problem that you are currently receiving treatment for. Cystocele with prolapse Osteoporosis Patient Survey You may receive a survey via text or e-mail asking about your office visit. Please share your experience with us by completing your survey. We appreciate your feedback and thank you for choosing us for your care. Normal [facility] Gastroenterology Office/Clin ic Noteon 10-21-2023 Gastroenterology Office/Clinic Note Chief Complaint epigastric pain, reflux HPI Staff This is a 82 year old female who presents today for a referral by Amanda for complaints of epigastric pain. Abdominal pain: When did you first have this pain: LUQ Pain and reflux Quality (sharp, dull): dull Constant or comes or go: comes and goes Relation to food: ice cream makes it worse EGD 11/2009 History of Present Illness bad taste in mouth pain in the right side that comes and goes PT with severe allergy to food and meds - very clean and organic diet stress could make the stomach to act up tums make it better worse with stress Hx of ulcer in 2009 pepcid gave her dizziness I have reviewed HPI staff note, most recent labs and imaging, more than 30 minutes spent reviewing the chart, during encounter, placing orders and counseling the patiente Review of Systems PHQ Score Initial Depression Screen Score: 4 SCORE All systems reviewed, negative except as mentioned above Physical Exam Vitals & Measurements HR: 101(Peripheral) RR: 16 BP: 169/78 HT: 62 in HT: 157 cm WT: 55.4 kg WT: 121.88 lb BMI: 22.48 General: alert, no acute distress HEENT: atraumatic normocephalic Cardiovascular: regular rate and rhythm, normal peripheral perfusion Respiratory: Lungs CTA, respirations non labored Extremities: no deformity, no trauma Abdomen: Benign, soft, nontender nondistended Assessment/Plan 1. Epigastric pain (R10.13: Epigastric pain) Ordered: EGD Endoscopy (Hospital Procedure) Acid reflux (K21.9: Gastro-esophageal reflux disease without esophagitis) Ordered: EGD Endoscopy (Hospital Procedure) Left upper quadrant pain (R10.12: Left upper quadrant pain) Ordered: EGD Endoscopy (Hospital Procedure) Stress-related physiological response affecting medical condition (F54: Psychological and behavioral factors associated with disorders or diseases classified elsewhere) Ordered: EGD Endoscopy (Hospital Procedure) Advised to use FD guard twice a day Schedule upper endoscopy Advised to get stress under good control and needs a counselor might Benefit from PPI trial in the future Follow-up No qualifying data available Problem List/Past Medical History Ongoing Cystocele with prolapse Osteoporosis Historical No qualifying data Procedure/Surgical History Nose (08/12/2010), EGD (esophagogastroduodenosco pic) electrohydraulic lithotripsy of bezoar in stomach (11/10/2009), Cholecystectomy, Cystoscopy, Hysterectomy. Medications Benadryl calcium-vitamin D Claritin 10 mg Tab, Oral, Daily LORazepam 1 mg Tab Macrodantin, Oral, QID predniSONE, Oral, Daily Sinus Rinse Kit Tums, Chewed, Daily Allergies Avelox Bactrim (Unknown) Compazine (Unknown) Duricef (Unknown) Inderal Latex (Unknown) Zithromax (Unknown) azithromycin (Unknown) cefadroxil (Unknown) erythromycin (Unknown) penicillins (Unknown) Social History Tobacco Never (less than 100 in lifetime) Tobacco Use:., 10/21/2023 Never (less than 100 in lifetime) Tobacco Use:. Never Smokeless Tobacco Use:., 09/19/2022 Family History Family history is negative Immunizations Vaccine Date Status influenza virus vaccine, inactivated 06/01/2022 Recorded influenza virus vaccine, inactivated 05/02/2021 Recorded influenza virus vaccine, inactivated 06/02/2018 Recorded influenza virus vaccine, inactivated 05/30/2017 Recorded influenza virus vaccine, inactivated 06/05/2016 Recorded Normal [facility] Comment on above: Result Comment: Elec tronically Signed By: Alcides BAH, Dedrick Kirk\.br\Date and Time Signed: 10/21/23 12:54 EDT Physician Referralon 024 Physician Referral [id number]#1.00TIFF Normal [facility] CHEMISTRYOrdered By: SYSTEM SYSTEM on 03-29-2023 CRP [Mass/Vol] 0.6 mg/dL Normal <=1.9mg/dL [facility] Remisol CRPon 03-29-2023 CRP [Mass/Vol] 0.6 mg/dL Normal <=1.9 [facility] Comment on above: Performed By: #### 2 [id number], [id number], [id number] ####[facility] [address] [place] [id number] HEMATOLOGYOrdered By: Thom Simon on 03-29-2023 Platelets (Bld) [#/Vol] 216.0 E9/L Normal 150. 0 - 500.0 E9/L [facility] HemeAutoSS Sed Rate Automated 19 mm/h Normal 0 - 34 mm/hr [facility] HemeAutoSS Platelet Counton 03-29-2023 Platelets (Bld) [#/Vol] 216.0 E9/L Normal 150. 0-500. 0 [facility] Comment on above: Performed By: #### 2 [id number], [id number] ####[facility] [address] [place] [address] Sed Rate Automatedon 023 Sed Rate Automated 19 mm/hr Normal 0-34 [facility] Comment on above: Performed By: #### 2 [id number], [id number] ####[facility] [address] [place] [address] Laboratory - Chemistry and C hemistry - challengeOrdered By: SYSTEM SYSTEM on 07-04-2022 CRP [Mass/Vol] 0.7 mg/dL Normal <=1.9mg/dL [facility] Remisol Laboratory - Hematology and Cell countsOrdered By: Connie Naik on 07-04-2022 Platelets (Bld) [#/Vol] 194.0 E9/L Normal 150. 0 - 500.0 E9/L [facility] HemeAutoSS No Panel InformationOrdered By: Connie Naik on 07-04-2022 Sed Rate Automated 16 mm/h Normal 0 - 34 mm/hr [facility] HemeAutoSS DAJA - VITAMIN Don 02-20-2022 VIT D 25-OH 82.6 ng/mL Normal [facility] Comment on above: Performed By: #### D ATVIEVONNE #### [facility] [address] [address] [address] Richmond Escobedo VIT D RANGES SEE BELOW Normal [facility] Comment on above: Result Comment: <20 ng/mL Vit D deficient 20 - <30 ng/mL Vit D insufficient 30 - 100 ng/mL Vit D sufficient >100 ng/mL Potential Toxicity Performed By: #### D ATVITD #### [facility] [address] [place], [place] [id number] Dr. Richmond Escobedo MG MAMM SCREEN 3D DANIEL CADon 01-26-2022 MG MAMM SCREEN 3D DANIEL CAD Patient: CORI GA Exam Date: 01/26/2022 : 1940 Gender:F Ordering : DR RALF ZARAGOZA D.O. Admission #: [id number] Family : Order #: [id number] CLICK HERE TO VIEW EXAM RADIOLOGY REPORT PROCEDURE: MAMMOGRAM SCREENING 3D BILATERAL CAD COMPARISON: MG MAMM SCREEN DANIEL W CAD, 12/31/2019. MG MAMM SCREEN DANIEL W CAD, 12/16/2018. INDICATIONS: Screening mammography Calculator Name NCI Breast Cancer Risk Assessment Tool 5 Year Breast Cancer Risk 2.00% Lifetime Breast Cancer Risk 2.80% Personal Breast Cancer No Personal Ovarian Cancer No Treatments Hysterectomy, bilateral oophrectomy Family Cancers Brother with prostate cancer at age 62. LOCATION: [facility] BREAST COMPOSITION: Scattered areas fibroglandular density. FINDINGS: DIAGNOSTIC CATEGORY 2--BENIGN FINDING: RIGHT BREAST: No significant suspicious finding. Scattered benign-appearing calcifications are present. Stable scattered asymmetries. No significant change has occurred. LEFT BREAST: No significant suspicious finding. Scattered benign-appearing calcifications are present. Stable scattered asymmetries. No significant change has occurred. RECOMMENDATIONS: ROUTINE MAMMOGRAM AND CLINICAL EVALUATION IN 12 MONTHS. PLEASE NOTE: A NORMAL MAMMOGRAM DOES NOT EXCLUDE THE POSSIBILITY OF BREAST CANCER. A CLINICALLY SUSPICIOUS PALPABLE LUMP SHOULD BE BIOPSIED. Dictated by: Salvador Giles M.D. on 01/26/2022 at 14:56 Approved by: Salvador Giles M.D. on 01/26/2022 at 15:23 Normal [facility] XR DEXA BONE DENSITYon 01-26 XR DEXA BONE DENSITY EXAMINATION: XR DEX A BONE DENSITY, 01/26/2022 10:53 AM EDT HISTORY: Menopause present COMPARISON: DEXA bone densitometry 12/31/2019 TECHNIQUE: Dual-energy X-ray absorptiometry (DEXA) bone density study performed for the axial skeleton. FINDINGS: SPINE ANALYSIS: Average bone mineral density is 0.848 g/cm2. T-score (standard deviation relative to young adult mean): -2.8 . -8.0% change since prior study. HIP ANALYSIS: Lowest bone mineral density is within the left femoral trochanter, 0.5, 0.6 g/cm2. T-score (standard deviation relative to young adult mean): -2.9 . -9.0% change since prior study. IMPRESSION: World [employer] Classification: Osteoporosis - High Fracture Risk Electronically authenticated by: SALVADOR ANGELIQUE Date: 2022-01-26 16:46 Normal [facility] CBC AUTO DIFFon 11-29-2021 BASO # 0.1 103/ul Normal 0.0-0.1 [facility] Comment on above: Performed By: #### D ATCBC #### [facility] [address] [address] [address] Richmond Escobedo Basophils/100 WBC (Bld) 1.3 % Normal 0.2-2.0 [facility] Comment on above: Performed By: #### D ATCBC #### [facility] [address] [address] [address] Richmond Escobedo EO # 0.3 103/ul Normal 0.0-0.7 [facility] Comment on above: Performed By: #### D ATCBC #### [facility] [address] [address] [address] Richmond Escobedo Eosinophils/100 WBC (Bld) 3.8 % Normal 0.9-7.0 [facility] Comment on above: Performed By: #### D ATCBC #### [facility] [address] [address] [address] Richmond Escobedo Erythrocyte distribution width (RBC) [Ratio] 12.9 % Normal 11.0-15.0 [facility] Comment on above: Performed By: #### D ATCBC #### [facility] [address] [place] [address] Dr. Richmond Escobedo Hematocrit (Bld) [Volume fraction] 45.2 % Normal 36.0-48.0 [facility] Comment on above: Performed By: #### D ATCBC #### [facility] [address] [address] [address] Richmond Escobedo Hemoglobin (Bld) [Mass/Vol] 14.5 g/dL Normal 12.0-16.0 [facility] Comment on above: Performed By: #### D ATCBC #### [facility] [address] [place] [address] Dr. Richmond Escobedo IG # 0.02 10e3/ul Normal 0.00-0.03 [facility] Comment on above: Performed By: #### D ATCBC #### [facility] [address] [place] [address] Dr. Richmond Escobedo IG % 0.3 % Normal 0.0-0.5 [facility] Comment on above: Performed By: #### D ATCBC #### [facility] [address] [place] [address] Dr. Richmond Escobedo LYMPH # 1.8 103/ul Normal 1.2-3.8 [facility] Comment on above: Performed By: #### D ATCBC #### [facility] [address] [place] [address] Dr. Richmond Escobedo Lymphocytes/100 WBC (Bld) 26.3 % Normal 20.5-60.0 [facility] Comment on above: Performed By: #### D ATCBC #### [facility] [address] [place] [address] Dr. Richmond Escobedo MCH (RBC) [Entitic mass] 29.9 pg Normal 26.7-34.0 [facility] Comment on above: Performed By: #### D ATCBC #### [facility] [address] [place] [address] Dr. Richmond Escobedo MCHC (RBC) [Mass/Vol] 32.1 g/dL Normal 29.9-35.2 [facility] Comment on above: Performed By: #### D ATCBC #### [facility] [address] [place] [address] Dr. Richmond Escobedo MCV (RBC) [Entitic vol] 93.2 fL Normal 81.0-99.0 [facility] Comment on above: Performed By: #### D ATCBC #### [facility] [address] [place] [address] Dr. Richmond Escobedo MONO # 0.6 103/ul Normal 0.3-0.8 [facility] Comment on above: Performed By: #### D ATCBC #### [facility] [address] [place] [address] Dr. Richmond Escobedo Monocytes/100 WBC (Bld) 9.1 % Normal 1.7-12.0 [facility] Comment on above: Performed By: #### D ATCBC #### [facility] [address] [place] [address] Dr. Richmond Escobedo NEUT # 4.1 103/ul Normal 1.4-6.5 [facility] Comment on above: Performed By: #### D ATCBC #### [facility] [address] [place] [address] Dr. Richmond Escobedo Neutrophils/100 WBC (Bld) 59.2 % Normal 43.0-75.0 [facility] Comment on above: Performed By: #### D ATCBC #### [facility] [address] [place] [address] Dr. Richmond Escobedo Platelet mean volume (Bld) [Entitic vol] 10.8 fL Normal 9.5-13.5 [facility] Comment on above: Performed By: #### D ATCBC #### [facility] [address] [place] [address] Dr. Richmond Escobedo PLT 224 103/ul Normal 150-450 [facility] Comment on above: Performed By: #### D ATCBC #### [facility] [address] [place] [address] Dr. Richmond Escobdeo RBC 4.85 106/ul Normal 4.20-5.40 [facility] Comment on above: Performed By: #### D ATCBC #### [facility] [address] [place] [address] Dr. Richmond Escobedo WBC 6.8 103/ul Normal 4.0-11.0 [facility] Comment on above: Performed By: #### D ATCBC #### [facility] [address] [place] [address] Dr. Richmond Escobedo DAJA- BMP WITH LIPIDon 2021 Anion gap [Moles/Vol] 8.8 mmol/L Normal [facility] Comment on above: Performed By: #### D ATBMP #### [facility] [address] [place] [address] Dr. Richmond Escobedo Calcium [Mass/Vol] 9.4 mg/dL Normal 8.5-10.1 [facility] Comment on above: Performed By: #### D ATBMP #### [facility] [address] [address] [address] Richmond Escobedo Chloride [Moles/Vol] 103 mmol/L Normal 98-107 [facility] Comment on above: Performed By: #### D ATBMP #### [facility] [address] [address] [address] Richmond Escobedo Cholesterol [Mass/Vol] 196 mg/dL Normal <=200 [facility] Comment on above: Performed By: #### D ATBMP #### [facility] [address] [address] [address] Richmond Escobedo Cholesterol in HDL [Mass/Vol] 87 mg/dL Critically high 40-60 [facility] Comment on above: Performed By: #### D ATBMP #### [facility] [address] [place] [address] Dr. Richmond Escobedo Cholesterol in LDL [Mass/Vol] 93.6 mg/dL Normal [facility] Comment on above: Performed By: #### D ATBMP #### [facility] [address] [place] [address] Dr. Richmond Escobedo CO2 [Moles/Vol] 32.6 mmol/L Critically high 22.0-30.0 [facility] Comment on above: Performed By: #### D ATBMP #### [facility] [address] [place] [address] Dr. Richmond Escobedo Creatinine [Mass/Vol] 0.73 mg/dL Normal 0.52-1.04 [facility] Comment on above: Performed By: #### D ATBMP #### [facility] [address] [place] [address] Dr. Richmond Escobedo EGFR-AF EQUATORIAL GUINEAN >60 Normal >=60 [facility] Comment on above: Performed By: #### D ATBMP #### [facility] [address] [address] [address] Richmond Escobedo EGFR-NON AF EQUATORIAL GUINEAN >60 Normal >=60 [facility] Comment on above: Performed By: #### D ATBMP #### [facility] [address] [address] [address] Richmond Escobedo Glucose [Mass/Vol] 101 mg/dL Normal 74-106 [facility] Comment on above: Performed By: #### D ATBMP #### [facility] [address] [address] [address] Richmond Escobedo HDL NORMAL > or = 60 mg/dl - LO W CARDIOVASCULAR RISK <40 mg/dl - HIGH CARDIOVASCULAR RISK Normal [facility] Comment on above: Performed By: #### D ATBMP #### [facility] [address] [address] [address] Richmond Escobedo LDL CALC NORMAL SEE BELOW Normal [facility] Comment on above: Result Comment: <100 mg/dl OPTIMAL 100 - 129 mg/dl NEAR OR ABOVE OPTIMAL 130 - 159 mg/dl BORDERLINE HIGH 160 - 189 mg/dl HIGH >190 mg/dl VERY HIGH Performed By: #### D ATBMP #### [facility] [address] [address] [address] Richmond Escobedo Potassium [Moles/Vol] 4.4 mmol/L Normal 3.4-5.0 [facility] Comment on above: Performed By: #### D ATBMP #### [facility] [address] [address] [address] Richmond Escobedo Sodium [Moles/Vol] 140 mmol/L Normal 137-145 [facility] Comment on above: Performed By: #### D ATBMP #### [facility] [address] [address] [address] Richmond Escobedo Triglyceride [Mass/Vol] 77 mg/dL Normal <=150 [facility] Comment on above: Performed By: #### D ATBMP #### [facility] [address] [address] [address] Richmond Escobedo Urea nitrogen [Mass/Vol] 16.0 mg/dL Normal 7.0-18.0 [facility] Comment on above: Performed By: #### D ATBMP #### [facility] [address] [address] [address] Richmond Escobedo Urea nitrogen/Creatinine [Mass ratio] 21.9 mg/mg Normal [facility] Comment on above: Performed By: #### D ATBMP #### [facility] [address] [address] [address] Richmond Escobedo VLDL CALC 15.4 mg/dL Normal [facility] Comment on above: Performed By: #### D ATBMP #### [facility] [address] [address] [address] Richmond Escobedo CHEMISTRYOrdered By: SYSTEM SYSTEM on 10-04-2021 CRP [Mass/Vol] 0.6 mg/dL Normal <=1.9mg/dL [facility] Remisol HEMATOLOGYOrdered By: Qi cosby on 10-04-2021 Platelets (Bld) [#/Vol] 201.0 E9/L Normal 150. 0 - 500.0 E9/L [facility] HemeAutoSS Sed Rate Automated 12 mm/h Normal 0 - 34 mm/hr [facility] HemeAutoSS CHEMISTRYOrdered By: SYSTEM SYSTEM on 02-22-2021 CRP [Mass/Vol] 0.6 mg/dL Normal <=1.9mg/dL [facility] Remisol HEMATOLOGYOrdered By: Olivia Braga on 02-22-2021 Platelets (Bld) [#/Vol] 190.0 E9/L Normal 150. 0 - 500.0 E9/L [facility] HemeAutoSS Sed Rate Automated 13 mm/h Normal 0 - 34 mm/hr [facility] HemeAutoSS Vital Signs Date Time Vital Sign Value Performing Clinician Facility 03-02-2024 13:55-0400 Body height 154.94 cm [facility] 03-02-2024 13:55-0400 Body mass index (BMI) [Ratio] 22.6 kg/m2 [facility] 03-02-2024 13:55-0400 Body weight 54.43 kg [facility] 03-02-2024 13:55-0400 Diastolic blood pressure 73 mm[Hg] [facility] 03-02-2024 13:55-0400 Heart rate 99 /min [facility] 03-02-2024 13:55-0400 Systolic blood pressure 163 mm[Hg] [facility] 11-27-2023 12:40-0400 Blood Pressure Location Mohamad Mouchli [facility] 11-27-2023 12:40-0400 Diastolic blood pressure 72 mm[Hg] Mohamad Mouchli [facility] 11-27-2023 12:40-0400 Heart rate 102 /min Mohamad Mouchli [facility] 11-27-2023 12:40-0400 Respiratory rate 16 /min Mohamad Mouchli [facility] 11-27-2023 12:40-0400 Systolic blood pressure 153 mm[Hg] Mohamad Mouchli [facility] 10-30-2023 11:15-0400 Blood Pressure Location Mohamad Mouchli [facility] 10-30-2023 11:15-0400 Diastolic blood pressure 75 mm[Hg] Mohamad Mouchli [facility] 10-30-2023 11:15-0400 Heart rate 82 /min Mohamad Mouchli [facility] 10-30-2023 11:15-0400 Respiratory rate 12 /min Mohamad Mouchli [facility] 10-30-2023 11:15-0400 SaO2% (BldA) [Mass fraction] 96 % Mohamad Mouchli [facility] 10-30-2023 11:15-0400 Systolic blood pressure 139 mm[Hg] Mohamad Mouchli [facility] 10-30-2023 11:00-0400 Diastolic blood pressure 69 mm[Hg] Mohamad Mouchli [facility] 10-30-2023 11:00-0400 Heart rate 89 /min Mohamad Mouchli [facility] 10-30-2023 11:00-0400 Respiratory rate 13 /min Mohamad Mouchli [facility] 10-30-2023 11:00-0400 Systolic blood pressure 125 mm[Hg] Mohamad Mouchli [facility] 10-30-2023 10:55-0400 Blood Pressure Location Mohamad Mouchli [facility] 10-30-2023 10:55-0400 Diastolic blood pressure 61 mm[Hg] Mohamad Mouchli [facility] 10-30-2023 10:55-0400 Heart rate 85 /min Mohamad Mouchli [facility] 10-30-2023 10:55-0400 Respiratory rate 17 /min Mohamad Mouchli [facility] 10-30-2023 10:55-0400 SaO2% (BldA) [Mass fraction] 97 % Mohamad Mouchli [facility] 10-30-2023 10:55-0400 Systolic blood pressure 110 mm[Hg] Mohamad Mouchli [facility] 10-30-2023 10:45-0400 Body temperature 96.98 [degF] Mohamad Mouchli [facility] 10-30-2023 10:40-0400 Respiratory rate 16 /min Mohamad Mouchli [facility] 10-30-2023 10:35-0400 Respiratory rate 16 /min Mohamad Mouchli [facility] 10-30-2023 10:30-0400 Respiratory rate 16 /min Mohamad Mouchli [facility] 10-30-2023 09:16-0400 Body temperature 98.06 [degF] Mohamad Mouchli [facility] 10-21-2023 12:42-0400 Diastolic blood pressure 78 mm[Hg] Mohamad Mouchli [facility] 10-21-2023 12:42-0400 Mean blood pressure 108 mm[Hg] Mohamad Mouchli [facility] 10-21-2023 12:42-0400 Systolic blood pressure 169 mm[Hg] Mohamad Mouchli [facility] 10-21-2023 12:29-0400 Blood Pressure Location Mohamad Mouchli [facility] 10-21-2023 12:29-0400 Diastolic blood pressure 77 mm[Hg] Mohamad Mouchli [facility] 10-21-2023 12:29-0400 Heart rate 101 /min Mohamad Mouchli [facility] 10-21-2023 12:29-0400 Respiratory rate 16 /min Mohamad Mouchli [facility] 10-21-2023 12:29-0400 Systolic blood pressure 173 mm[Hg] Mohamad Mouchli [facility] 09-20-2023 10:15-0500 Body height 154.94 cm Agustín Valdez Other [employer] Other 09-20-2023 10:15-0500 Body mass index (BMI) [Ratio] 21.92 kg/m2 Agustín Valdez Other [employer] Other 09-20-2023 10:15-0500 Body weight 52.62 kg Agustín Valdez Other [employer] Other 09-20-2023 10:15-0500 Diastolic blood pressure 79 mm[Hg] Agustín Valdez Other [employer] Other 09-20-2023 10:15-0500 Respiratory rate 18 /min Agustín Valdez Other [employer] Other 09-20-2023 10:15-0500 SaO2% (BldA) [Mass fraction] 98 % Agustín Valdez Other [employer] Other 09-20-2023 10:15-0500 Systolic blood pressure 151 mm[Hg] Agustín Valdez Other [employer] Other 09-18-2023 14:13-0500 Body weight 54.43 kg Yas Nataprawira DO Work Phone: [facility] [employer] 09-18-2023 14:13-0500 Diastolic blood pressure 80 mm[Hg] Yas Nataprawira DO Work Phone: [facility] [employer] 09-18-2023 14:13-0500 Systolic blood pressure 142 mm[Hg] Yas Nataprawira DO Work Phone: [facility] [employer] 06-11-2023 14:15-0400 Body height 154.94 cm Agustín Valdez Other [employer] Other 06-11-2023 14:15-0400 Body mass index (BMI) [Ratio] 21.84 kg/m2 Agustín Valdez Other [employer] Other 06-11-2023 14:15-0400 Body weight 52.44 kg Agustín Valdez Other [employer] Other 06-11-2023 14:15-0400 Diastolic blood pressure 79 mm[Hg] Agustín Valdez Other [employer] Other 06-11-2023 14:15-0400 Systolic blood pressure 150 mm[Hg] Agustín Valdez Other [employer] Other 02-27-2023 11:00-0400 Body height 154.94 cm Agustín Valdez Other [employer] Other 02-27-2023 11:00-0400 Body mass index (BMI) [Ratio] 21.54 kg/m2 Agustín Valdez Other [employer] Other 02-27-2023 11:00-0400 Body weight 51.71 kg Agustín Valdez Other [employer] Other 02-27-2023 11:00-0400 Diastolic blood pressure 76 mm[Hg] Agustín Valdez Other [employer] Other 02-27-2023 11:00-0400 Systolic blood pressure 138 mm[Hg] Agustín Valdez Other [employer] Other 09-10-2022 11:45-0500 Body height 154.94 cm Agustín Valdez Other [employer] Other 09-10-2022 11:45-0500 Body mass index (BMI) [Ratio] 21.73 kg/m2 Agustín Valdez Other [employer] Other 09-10-2022 11:45-0500 Body weight 52.16 kg Agustín Valdez Other [employer] Other 09-10-2022 11:45-0500 Diastolic blood pressure 88 mm[Hg] Agustín Valdez Other [employer] Other 09-10-2022 11:45-0500 SaO2% (BldA) [Mass fraction] 97 % Agustín Valdez Other [employer] Other 09-10-2022 11:45-0500 Systolic blood pressure 140 mm[Hg] Agustín Valdez Other [employer] Other Encounters Encounter Date Encounter Type Care Provider Facility Start: 04-08-2024 End: 04-08-2024 ambulatory YAS Santiago NATAPRLORENZORA Not Available Start: 03-02-2024 End: 03-02-2024 ambulatory [facility] Work Phone: Start: 03-02-2024 End: 03-02-2024 Patient encounter procedure [facility] Work Phone: Start: 02-05-2024 End: 02-05-2024 ambulatory MAHIN WISE Not Available Start: 02-03-2024 End: 02-03-2024 ambulatory Mahin Wise Facility[facility] Start: 02-03-2024 End: 02-03-2024 Patient encounter procedure Mahin Wise [facility] Start: 02-03-2024 Non-patient / Non-visit [facility] Physician [facility] [place] [employer] Work Phone: Start: 01-09-2024 End: 01-09-2024 ambulatory EVANS COHEN Not Available Start: 01-02-2024 End: 01-02-2024 ambulatory YAS Santiago NATAPRAWIRA Not Available Start: 12-17-2023 End: 12-17-2023 ambulatory YAS J NATAPRAWIRA Not Available Start: 11-27-2023 End: 11-27-2023 ambulatory Dedrick Mcgrath Facility:[facility] Start: 11-27-2023 End: 11-27-2023 Patient encounter procedure Dedrick Retanalaurel [facility] Start: 10-30-2023 End: 10-30-2023 ambulatory Sugeycliff Reagan Escobedojesus Facility:[facility] Start: 10-30-2023 End: 10-30-2023 Patient encounter procedure Dedrick Retanalaurel [facility] Start: 10-21-2023 End: 10-21-2023 ambulatory Dedrick Retanalaurel Facility:[facility] Start: 10-21-2023 End: 10-21-2023 Patient encounter procedure Dedrick Retanalaurel [facility] Start: 09-23-2023 Nursing evaluation o f patient and report Agustín Valdez [facility] Start: 09-23-2023 Telephone encounter Agustín Amanda [facility] Start: 09-23-2023 End: 09-23-2023 ambulatory Agustín Valdez Other [employer] Other Start: 09-20-2023 End: 09-20-2023 ambulatory Agustín Valdez Other [employer] Other Start: 09-20-2023 Office outpatient vi sit 15 minutes Agustín Valdez [facility] Start: 09-18-2023 End: 09-18-2023 Office outpatient visit 15 minutes Yas Lake DO Work Phone: [facility] Comment on above: Fitting and adjustme nt of pessary (Primary Dx); Urge incontinence; Cystocele, midline; Pelvic pressure in female; Nocturia; Hx of hysterectomy for benign disease Start: 09-18-2023 End: 09-18-2023 ambulatory YAS Santiago NATAPRAWIRA Not Available Start: 09-17-2023 End: 09-17-2023 ambulatory YAS Santiago NATAPRAWIRA Not Available Start: 08-20-2023 End: 08-20-2023 ambulatory Agustín Valdez Other [employer] Other Start: 08-20-2023 Telephone encounter Agustín Valdez [facility] Start: 08-19-2023 End: 08-19-2023 ambulatory YAS Santiago NATAPRAWIRA Not Available Start: 06-11-2023 End: 06-11-2023 ambulatory Agustín Valdez Other [employer] Other Start: 06-11-2023 Office outpatient vi sit 15 minutes Agustín Valdez [facility] Start: 05-22-2023 End: 05-22-2023 ambulatory Agustín Valdez Other [employer] Other Start: 05-22-2023 Nursing evaluation o f patient and report Agustín Valdez [facility] Start: 02-27-2023 End: 02-27-2023 ambulatory Agustín Valdez Other [employer] Other Start: 02-27-2023 Patient encounter procedure Agustín Valdez [facility] Start: 02-14-2023 End: 02-14-2023 ambulatory Ralf Zaragoza Other [employer] Other Start: 02-14-2023 Telephone encounter Ralf Zaragoza [facility] Start: 09-10-2022 End: 09-10-2022 ambulatory Agustín Valdez Other [employer] Other Start: 09-10-2022 Office outpatient vi sit 15 minutes Agustín Valdez [facility] Start: 07-04-2022 End: 06-27-2023 Recurring Mahin Wise [facility] Start: 02-20-2022 End: 02-21-2022 ambulatory NONE LISTED REQUEST Facility:[facility] Start: 01-26-2022 End: 01-27-[address] RALF ZARAGOZA Facility:[facility] Start: 12-28-2021 Adult health examination Agustín Valdez Other [employer] Other Start: 11-29-2021 End: 2021 ambulatory NONE LISTED REQUEST Facility:[facility] Start: 02-22-2021 End: 01-02-2022 Recurring Mahin Wise [facility] Procedures Date Procedure Procedure Detail Performing Clinician Start: 10-30-2023 Esophagogastroduodenoscopy Dedrick barragan Start: 12-27-2020 End: 02-19-2022 Depression screening Agustín Valdez Other Start: 10-25-2016 Screening for osteoporosis Agustín Valdez Other Start: 09-07-2015 Screening for malignant neoplasm of colon Agustín Valdez Other Start: 06-17-2014 General examination of patient Agustín suazo Other Start: 06-17-2014 Screening mammography Agustín Valdez Other Start: 08-12-2010 Nasal structure (body structure) Dedrick Mcgrath Start: 11-10-2009 Esophagogastroduodenoscopic electrohydraulic lithotripsy of bezoar in stomach Dedrick Mcgrath Cholecystectomy Mahin mcclendon Cystoscopy Mahin Wise Hysterectomy Mahin Wise Screening for malign ant neoplasm of breast Agustín Valdez Other Plan of Treatment Date Care Activity Detail Author Start: 02-05-2024 End: 02-05-2024 Patient encounter procedure 02/05/2024 10:00 AM EDT Office Visit [facility] [address] [place] [id number] Mahin Wise, DO [address] [place] [address] [facility] Start: 11-05-2023 End: 11-05-2023 Patient encounter procedure 11/05/2023 10:30 AM EDT Office Visit [facility] [address] [place] [id number] Evans Cohen MD [address] [place] [address] [facility] Start: 10-10-2023 End: 10-10-2023 Patient encounter procedure 10/10/2023 11:30 AM EST Office Visit [facility] [address] [facility] [address] [place] [address] Yas Lake DO [address] [place] [address] [facility] DXA Skeletal system.axial Views for bone density [facility] Immunizations Immunization Date Immunization Notes Care Provider Fa cili 05-22-2023 influenza, injectabl e, quadrivalent, preservative free Agustín Valdez Other [facility] 06-01-2022 influenza virus vaccine, split virus (incl. purified surface antigen) Agustín Valdez Other [employer] Other 06-01-2022 influenza virus vaccine, unspecified formulation Mahin Wise [facility] 05-02-2021 influenza virus vaccine, split virus (incl. purified surface antigen) Agustín Valdez Other [employer] Other 05-02-2021 influenza virus vaccine, unspecified formulation Mahin Wise [facility] 04-28-2020 influenza virus vaccine, split virus (incl. purified surface antigen) Agustín Valdez Other [facility] [employer] Other 04-28-2020 influenza virus vaccine, unspecified formulation [facility] 06-04-2019 influenza virus vaccine, split virus (incl. purified surface antigen) Agustín Valdez Other [facility] [employer] Other 06-04-2019 influenza virus vaccine, unspecified formulation [facility] 06-02-2018 influenza virus vaccine, split virus (incl. purified surface antigen) Agustín Valdez Other [facility] [employer] Other 06-02-2018 influenza virus vaccine, unspecified formulation Mahin Wise [facility] 05-30-2017 influenza virus vaccine, unspecified formulation Mahin Zahler [facility] 05-30-2017 tetanus and diphther ia toxoids, adsorbed, preservative free, for adult use (5 Lf of tetanus toxoid and 2 Lf of diphtheria toxoid) Agustín Valdez Other [facility] 06-05-2016 influenza virus vaccine, unspecified formulation Mahin Zahler [facility] 06-05-2016 tetanus and diphther ia toxoids, adsorbed, preservative free, for adult use (5 Lf of tetanus toxoid and 2 Lf of diphtheria toxoid) Agustín Valdez Other [facility] 06-13-2015 tetanus and diphther ia toxoids, adsorbed, preservative free, for adult use (5 Lf of tetanus toxoid and 2 Lf of diphtheria toxoid) Agustín Valdez Other [facility] 06-11-2014 influenza virus vaccine, split virus (incl. purified surface antigen) Agustín Amanda Other [employer] Other 06-11-2014 influenza virus vaccine, unspecified formulation [facility] 06-11-2013 tetanus and diphther ia toxoids, adsorbed, preservative free, for adult use (5 Lf of tetanus toxoid and 2 Lf of diphtheria toxoid) Agustín Valdez Other [facility] Payers Date Payer Category Payer Unknown AARP AARP [id number] 2023-Present [address] [place] [address] [id number] 2005 Medicare MEDICARE MEDICAR E PART B [id number] 2005-Present [address] [address] [place] [address] Medicare [id number] 1959 Medicare [id number] 1959 Self-pay 1959 Unknown [id number] 1940 Unknown [id number] 1940 Unknown [id number] 1940 Unknown [id number] [id number] 1940 Unknown [id number] [id number] 1940 Unknown [id number] [id number] 1940 Unknown [id number] [id number] 1940 Unknown [id number] [id number] 1940 Unknown [id number] [id number] 1940 Unknown [id number] 2.16.840.1.196940.3.579.2.9 1940 Unknown [id number] [id number] 1940 Unknown [id number] 2.16.840.1.042032.3.579.2.9 1940 Unknown [id number] [id number] 1940 Unknown [id number] [id number] Unknown [id number] [id number] Unknown [id number] [id number] Social History Date Type Detail Facility Tobacco smoking status Unknown if ever smoked [facility] Start: 09-18-2023 Sex Assigned At Female [facility] Start: 09-19-2022 End: 03-02-2024 Tobacco smoking status Never smoked tobacco (finding) [facility] Tobacco smoking status Never [facility] Start: 04-05-2023 Tobacco use and exposure Smokeless tobacco non-user [facility] Start: 09-18-2023 Alcohol intake Lifetime non-d stephen (finding) [facility] Start: 09-18-2023 History of Social function [facility] Start: 1940 Sex Assigned At Not on file [facility] Start: 1940 Sex Assigned At Female [facility] NEGATED: Highlighted rowStart: NINF History of tobacco use Passive smoker [facility] Functional Status Date Assessment Result Facility 11-27-2023 Functional Status N/A [facility] 10-30-2023 Functional Status N/A [facility] 10-21-2023 Functional Status N/A [facility] Clinical Notes 09-10-2022 to 10-31-2023 Note Date & Type Note Facility 10-31-2023 Note [id number] [facility] 10-30-2023 Hospital Discharg e instructions Patient Education 10/30/2023 10:58:50 Endoscopy, Care After Procedure [facility] Endoscopy Care After Procedure Please read the instructions outlined below and refer to this sheet in the next few weeks. These discharge instructions provide you with general information on caring for yourself after you leave the hospital. Your doctor may also give you specific instructions. While your treatment has been planned according to the most current medical practices available, unavoidable complications occasionally occur. If you have any problems or questions after discharge, please call your doctor. ACTIVITY You may resume your regular activity but move at a slower pace for the next 24 hours. Take frequent rest periods for the next 24 hours. Walking will help expel (get rid of) the air and reduce the bloated feeling in your abdomen. No driving for 24 hours (because of the anesthesia (medicine) used during the test). You may shower. Do not sign any important legal documents or operate any machinery for 24 hours (because of the anesthesia used during the test). NUTRITION Drink plenty of fluids. You may resume your normal diet. Begin with a light meal and progress to your normal diet. Avoid alcoholic beverages for 24 hours or as instructed by your caregiver. MEDICATIONS You may resume your normal medications unless your caregiver tells you otherwise. WHAT YOU CAN EXPECT TODAY You may experience abdominal discomfort such as a feeling of fullness or gas pains. FOLLOW-UP Your doctor will discuss the results of your test with you. SEEK IMMEDIATE MEDICAL ATTENTION IF ANY OF THE FOLLOWING OCCUR: Excessive nausea (feeling sick to your stomach) and/or vomiting. Severe abdominal pain and distention (swelling). Trouble swallowing. Temperature over 100 F (37.8 C). Rectal bleeding or vomiting of blood. Document Released: 03/12/2005 Document Re-Released: 01/20/2007 [employer] Patient Information [employer] Follow Up Care 10/21/2023 13:07:42 With:Alcides BAH, CAT Lopez, [facility] Address: [address], [address] [place] [phone] When: Unknown Comments:Office will call to schedule follow up appointment and/or review any pending biopsy resultsCall for any problems. [facility] 10-30-2023 Note Endoscopy Care After Procedure Please read the instructions outlined below and refer to this sheet in the next few weeks. These discharge instructions provide you with general information on caring for yourself after you leave the hospital. Your doctor may also give you specific instructions. While your treatment has been planned according to the most current medical practices available, unavoidable complications occasionally occur. If you have any problems or questions after discharge, please call your doctor. ACTIVITY ? You may resume your regular activity but move at a slower pace for the next 24 hours. ? Take frequent rest periods for the next 24 hours. ? Walking will help expel (get rid of) the air and reduce the bloated feeling in your abdomen. ? No driving for 24 hours (because of the anesthesia (medicine) used during the test). ? You may shower. ? Do not sign any important legal documents or operate any machinery for 24 hours (because of the anesthesia used during the test). NUTRITION ? Drink plenty of fluids. ? You may resume your normal diet. ? Begin with a light meal and progress to your normal diet. ? Avoid alcoholic beverages for 24 hours or as instructed by your caregiver. MEDICATIONS ? You may resume your normal medications unless your caregiver tells you otherwise. WHAT YOU CAN EXPECT TODAY ? You may experience abdominal discomfort such as a feeling of fullness or ?gas? pains. FOLLOW-UP ? Your doctor will discuss the results of your test with you. seek immediate medical attention if any of the following occur: ? Excessive nausea (feeling sick to your stomach) and/or vomiting. ? Severe abdominal pain and distention (swelling). ? Trouble swallowing. ? Temperature over 100 F (37.8? C). ? Rectal bleeding or vomiting of blood. Document Released: 03/12/2005 Document Re-Released: 01/20/2007 [facility] Patient Information ?2009 [employer]. [facility] 09-23-2023 Evaluation note Encounter Date Diagnosis Assessment Notes Sep, Dysuria (ICD-10 - R30.0) [employer] Other 02-09-2024 Evaluation note* Encounter Date Diagnosis Assessment Notes Treatment Notes Treatment Clinical Notes Sep, Epigastric pain (ICD-10 - R10.13) Pt states she didn't feel well on Pepcid. Agrees to GI referral for potential EGD and further w/u for GERD or ulcer. [facility] Other 02-07-2024 History of Present illness Narrative* Yas Pamela Aleksandra, DO - 09/18/2023 2:00 PM EST Subjective Cori Ga is a 82 y.o. female HPI Chief Complaint Patient presents with sick visit Patient here today for problem visit. Patient had a donut pessary size: 57mm, 2.25in, #1 inserted on 09/17/23. Patient reports that when she got home that day she used the restroom and the pessary fellout. Unable to put it back in. Denies any pain, bleeding or discharge. Patient states that when shebent down to pet her puppy she felt uncomfortable almost like she was sitting on rocks . Past Medical History: Diagnosis Date Cervical spondylosis Cervical strain Dysuria Estrogen deficiency Eustachian salpingitis, acute, left JOHNNIE (generalized anxiety disorder) ([facility]) Gastro-esophageal reflux GCA (giant cell arteritis) ([facility]) 08/21/2019 Hyperlipemia ([facility]) Malaise Malodorous urine Menopause Osteoarthritis bilateral knees Osteopenia both femurs Sixth nerve palsy Temporal arteritis ([facility]) UTI (urinary tract infection) Vitamin D deficiency Past Surgical History: Procedure Laterality Date BREAST BIOPSY 2012 needle ,right CHOLECYSTECTOMY 1993 DILATION AND CURETTAGE OF UTERUS HYSTERECTOMY 1999 bso- Dr. Alan VAGINAL DELIVERY x3 Family History Problem Relation Name Age of Onset No Known Problems Mother No Known Problems Father Social History Tobacco Use Smoking status: Never Passive exposure: Never Smokeless tobacco: Never Substance Use Topics Alcohol use: Never Drug use: Never OB History Para Term AB Living 3 3 SAB IAB Ectopic Multiple Live Births # Outcome Date GA Lbr George/2nd Weight Sex Delivery Anes PTL Lv 3 Para 2 Para 1 Para Allergies Allergen Reactions Azithromycin Unknown Cefadroxil Unknown Erythromycin Other Reaction(s): Unknown Fluocinonide Unknown Latex Other Reaction(s): Unknown Moxifloxacin Other Reaction(s): Unknown Penicillins Unknown Prochlorperazine Unknown Sulfamethoxazole-Trimethoprim Unknown Current Outpatient Medications on File Prior to Visit Medication Sig Dispense Refill EpiPen 2-Brayan 0.3 MG/0.3ML injection syringe INJECT 1ML DIRECTED loratadine (Claritin) 10 MG tablet Take by mouth. LORazepam (Ativan) 1 MG tablet TAKE ONE TABLET BY MOUTH FOUR TIMES A DAY FOR 30 DAYS metoclopramide (Reglan) 5 MG tablet Refills(s) 0 No current facility-administered medications on file prior to visit. Review of Systems All other systems reviewed and are negative. Objective BP 142/80 Wt 120 lb Physical Exam Constitutional: Appearance: Normal appearance. Genitourinary: No lesions in the vagina. Genitourinary Comments: Short stem Gellhorn short stem #3, 2.25in pessary inserted. Pessary remained in place with valsalva Right Labia: No lesions. Left Labia: No lesions. No vaginal discharge. Neurological: Mental Status: She is alert. Skin: General: Skin is warm and dry. Psychiatric: Mood and Affect: Mood normal. Assessment/Plan 1. Fitting and adjustment of pessary Gellhorn short stem #3, 2.25in pessary inserted. Urinary or bowel retention, vaginal bleeding or pain precautions discussed. 2. Urge incontinence 3. Cystocele, midline 4. Pelvic pressure in female 5. Nocturia 6. Hx of hysterectomy for benign disease documented in this encounterGeneral [facility] [id number] Evaluation note* Encounter Date Diagnosis Assessment Notes Treatment Notes Treatment Clinical Notes May, Urge urinary incontinence (ICD-10 - N39.41) Pt agrees to referral to obstetrics/gynecology nurse. Referral entered. May, Gastroenteritis (ICD-10 - K52.9) Advised she stop reglan that she uses prn. Has been on it for years and notes it causes confusion. Advised she take pepcid prn for GERD. Her diarrhea and abd pain has resolved. Resume normal diet. [facility] Other 07-19-2023 Evaluation note* Encounter Date Diagnosis Assessment Notes Treatment Notes Treatment Clinical Notes Feb, Medicare annual wellness visit, subsequent (ICD-10 - Z00.00) Personalized health advice was given to the beneficiary including a written plan for screenings discussed and provided. Advanced care planning reviewed and/or information given as requested. Additional counseling was provided here today in regards to osteoporosis The above visit was performed by myself Feb, Screening mammogram for breast cancer (ICD-10 - Z12.31) Feb, Age-related osteoporosis without current pathological fracture (ICD-10 - M81.0) explained that insurance may not cover this year, but she could take order and check out of pocket cost. [facility] Other 01-30-2023 Evaluation note* Encounter Date Diagnosis Assessment Notes Treatment Notes Treatment Clinical Notes Aug, Epigastric pain (ICD-10 - R10.13) Lengthy discussion epigastric pain worsened as her was ill and after his stents. She states the only medicine she took in the past with success is Axid. Because she is allergic to multiple medicine I advised that she get some [id number] Pepcid. She also takes Reglan each evening at bedtime. We will check back with patient in 2 weeks to evaluate her progress. Aug, Stress incontinence (ICD-10 - N39.3) Reports incontinence when first getting up in the morning. Feels that she has a prolapsed bladder. UA today was normal. [facility] Other Evaluation + Plan note No data available for this section [facility] Future Appointments Appointment Date:10/30/2023 10:00:00 AM Scheduled Provider: Location:[facility] Appointment Type:Surgery [facility] Evaluation noteNo InformationNort [id number] Other Evaluation note* Diagnosis Fitting and adjustment of pessary- Primary Urge incontinence Cystocele, midline Pelvic pressure in female Nocturia Hx of hysterectomy for benign disease documented in this encounter [facility]* Diagnosis Onset Date Resolution Status Menopause acute [facility] Work Phone: Hisycma general Narrative - Reported* Type Description Date Medical History Acute UTI (urinary tract infecti on) Medical History Dysuria Medical History Age-related osteopor osis without current pathological fracture Medical History Primary osteoarthritis of knees, bilateral Medical History Gastro-esophageal re flux disease with esophagitis, without bleeding Medical History JHONNIE (generalized anxiety disorde r) Medical History Temporal arteritis Medical History Malodorous urine Medical History Vitamin D deficiency Medical History Unspecified Eustachian salpingit is, left ear Medical History Hyperlipidemia Medical History Sixth [abducent] nerve palsy, le ft eye Medical History Cervical spondylosis Medical History Estrogen deficiency Medical History Cervical strain, acute, initial encounter Medical History Intractable tension- type headache, unspecified chronicity pattern Medical History Menopause Medical History Malaise Medical History OSTEOPENIA OF NECKS OF BOTH FEMU RS Surgical History BREAST BIOPSY, NEEDLE RIGHT 201 2 Surgical History LAP CHOLECYSTECTOMY Hospitalization History SEE SURGICAL [facility] Other Histhch general Narrative - Reported* Type Description Date Medical History Acute UTI (urinary tract infecti on) Medical History Dysuria Medical History Age-related osteopor osis without current pathological fracture Medical History Primary osteoarthritis of knees, bilateral Medical History Gastro-esophageal re flux disease with esophagitis, without bleeding Medical History JOHNNIE (generalized anxiety disorde r) Medical History Temporal arteritis Medical History Malodorous urine Medical History Vitamin D deficiency Medical History Unspecified Eustachian salpingit is, left ear Medical History Hyperlipidemia Medical History Sixth [abducent] nerve palsy, le ft eye Medical History Cervical spondylosis Medical History Estrogen deficiency Medical History Cervical strain, acute, initial encounter Medical History Intractable tension- type headache, unspecified chronicity pattern Medical History Menopause Medical History Malaise Medical History OSTEOPENIA OF NECKS OF BOTH FEMU RS Surgical History BREAST BIOPSY, NEEDLE RIGHT 201 2 Surgical History LAP CHOLECYSTECTOMY 1993 Surgical History hysterectomy and BSO - Dr. Ines lambert 1999 Hospitalization History SEE SURGICAL [facility] Other Hospital Discharge instructions No data available for this section [facility] No data available for this section [facility] Summary Purpose Family History No Family History Records Found Relationship Condition Age at Onset Recorded Date/T marianna father Unknown mother Unknown Advance Directives No Advanced Directives Records Found Advance Directive Response Recorded Date/ Time Advance Directives No February 02 11:20am Reason for Referral Reason *09/27 Epigastr ic tenderness Diagnosis 1 Epigastric pain (R10 .13) Referral Organization [facility] Referring Provider First Name Agustín Referring Provider Last Name Amanda Referring Provider Specialty [facility] Referred Organization [facility] Referred Provider Nettie Wallace Referred Address [address] [place], [place],[address] Referred Provider Specialty Gastroentero logy Referral Priority Routine General Notes Tessa Lockhart 04:52:29 PM >received today, notes locked, ins attached, referral faxed Clinical Notes f: [id number] Reason *06/19 Inge Sorenson. ?cystocele. Diagnosis 1 Urge urinary inconti nence (N39.41) Referral Organization [facility] Referring Provider First Name Agustín Referring Provider Last Name Amanda Referring Provider Specialty [facility] Referred Organization [facility] Referred Provider Yas Lake Referred Address ,[place], [place],[address] Referred Provider Specialty OB - Gynecol ogy Referral Priority Routine General Notes Tessa Lockhart 12:57:42 PM >received today, attachments made, notes locked, referral faxed Reason 09/20/22 [place] [facility] - saw 10 years ago - bladder incontinence Diagnosis 1 Stress incontinence (N39.3) Referral Organization [facility] Referring Provider First Name Agustín Referring Provider Last Name Amanda Referring Provider Specialty [facility] Referred Organization [facility] Referred Provider Wong Bundy Referred Address [address],[place], [place],[address] Referred Provider Specialty Urology Referral Priority Routine Referral Appointment Date 2022-09-19 General Notes Tessa Lockhart 11:30:05 AM >received today, note locked, ins card attached, referral faxed Tessa Lockhart 09/18/2022 08:32:06 AM >faxed first attempt letter Tessa Lockhart 09/20/2022 01:28:55 PM >faxed first request for consult notes Tessa Lockhart 09/21/2022 05:04:25 PM >received notes and sent to Dr. Valdez for review. CLosing referral at this time. Chief Complaint and Reason for Visit Chief Complaint wellness Reason for Visit Menopause Additional Source Comments INFORMATION SOURCE (unrecogn ized section and content) DATE CREATED AUTHOR 02/20/2022 [facility] DATE CREATED AUTHOR AUTHOR'S ORGANIZ ATION 02/04/2024 Mera Hung [facility] DATE CREATED AUTHOR AUTHOR'S ORGANIZ ATION 02/13/2024 [facility] DATE CREATED AUTHOR AUTHOR'S ORGANIZ ATION 04/10/2024 [facility] EPIC Patient Care team informatio n (unrecognized section and content) Training Executive Relationship Specialty Start Date End Date Ralf Zaragoza MD [address] [place] [address] PCP - General Internal Medicine 04/04/23 Team Status: Active Member Role Status Dates Agustín Valdez MD Primary Care Provider Active Team Status: Active Member Role Status Dates Agustín Valdez MD Primary Care Provide r, Attending Provider Active Start: February 03, 2024 Team Status: Inactive Member Role Status Dates Agustín Valdez MD Primary Care Provide r, Attending Provider Active Start: March 02, 2024 End: March 02, 2024 REASON FOR VISIT (unrecogniz ed section and content) Reason Comments sick visit Patient here today f or problem visit. Patient had a donut pessary size: 57mm, 2.25in, #1 inserted on 09/17/23. Patient reports that when she got home that day she used the restroom and the pessary fell out. Unable to put it back in. Denies any pain, bleeding or discharge. Patient states that when she bent down to pet her puppy she felt uncomfortable almost like she was sitting on rocks . Goals (unrecognized section and content) Goals may be documented in a n alternate section FOR RECORDS PERTAINING TO PATIENTS WHO ARE OR HAVE BEEN ENROLLED IN A CHEMICAL DEPENDENCY/SUBSTANCEABUSE PROGRAM, SOME INFORMATION MAY BE OMITTED. This clinical summary was aggregated from multiple sources. Caution should be exercised in using it in the provision of clinical care. This summary normalizes information from multiple sources, and as a consequence, information in this document may materially change the coding, format and clinical context of patient data. In addition, data may be omitted in some cases. CLINICAL DECISIONS SHOULD BE BASED ON THE PRIMARY CLINICAL RECORDS. [employer] [facility]. provides no warranty or guarantee of the accuracy or completeness of information in this document.
== END 2024-04-21 09:23 | disposition home or self-care (01) ==
LOC: RAD 09:22
PROVIDERS: PCP Family Medicine; Visit Provider Family Medicine
DX: M81.0 Age-related osteoporosis without current pathological fracture (principal); Z78.0 Asymptomatic menopausal state
CPT/HCPCS: 77080

== ENCOUNTER 2024-06-08 14:16 | Outpatient (OUT) | payer MEDICARE, SELFPAY | END 2024-06-08 14:17 | disposition home or self-care (01) | LOC: LAB 14:18 | PROVIDERS: PCP Family Medicine; Visit Provider Family Medicine | DX: M81.0 Age-related osteoporosis without current pathological fracture (principal) | CPT/HCPCS: 36415; 82306 ==